=== PATIENT | female | born 1990 | race Caucasian/White ===

== ENCOUNTER 2022-07-30 10:46 | Outpatient (REF) | payer OTHER, SELFPAY ==
[2022-07-31 05:17] LABS: CT PCR NOT DETECTED (Not Detect.); NG PCR NOT DETECTED (Not Detect.)
[2022-07-31 15:52] LABS: BV Int Neg Control Negative (Negative); BV Int Pos Control Positive (Positive)
== END 2022-07-30 10:47 | disposition home or self-care (01) ==
LOC: HO.LNP 10:46
PROVIDERS: Visit Provider Advanced Practice Midwife
DX: Z01.419 Encounter for gynecological examination (general) (routine) without abnormal findings (principal); Z11.3 Encounter for screening for infections with a predominantly sexual mode of transmission
CPT/HCPCS: 87480; 87491; 87510; 87591; 87660

== ENCOUNTER 2023-02-21 11:10 | Outpatient (REF) | payer OTHER, SELFPAY ==
[2023-02-21 11:25] LABS: MANUAL DIFF FLAG NO
[2023-02-21 12:11] LABS: Basophils Percent Auto 0.4 % (0-2); Eosinophils Absolute Auto 0.2 X10*3/uL (0.0-0.4); Eosinophils Percent Auto 2.7 % (0-4); Hematocrit 42.4 % (37.0-47.0); Hemoglobin 13.4 g/dl (12.0-16.0); Imm Gran Abs Auto 0.02 X10*3/uL (0.00-0.03); Imm Gran Pct Auto 0.3 % (0.0-0.4); Lymphocytes Absolute Auto 2.3 X10*3/uL (1.2-4.9); Lymphocytes Percent Auto 33.6 % (20-40); Mean Corpuscular HGB Conc 31.6 g/dl (31.0-35.0); Mean Corpuscular Hemoglobin 29.8 pg (27.0-33.0); Mean Corpuscular Volume 94.4 fL (80.0-98.0); Mean Platelet Volume 10.9 fL (9.4-12.3); Monocytes Absolute Auto 0.8 X10*3/uL (0.1-1.2); Monocytes Percent Auto 12.4 % (2-11); Neutrophils Absolute Auto 3.4 x10*3/uL (2.0-8.3); Neutrophils Percent Auto 50.6 % (45-73); Platelet Count 308 X10*3/uL (160-400); Red Blood Count 4.49 X10*6/uL (4.20-5.50); Red Cell Distribution Width 13.5 % (11.0-16.0); White Blood Count 6.8 X10*3/uL (4.8-10.8)
[2023-02-21 12:21] LABS: Appearance Urine Clear; Color Urine Yellow; Glucose Urine UA Negative (Negative); Leukocyte Esterase Urine Small (1+) (Negative); Nitrite Urine Negative (Negative); PH 5.5 (5.0-9.0); Specific Gravity - Urine 1.025 (1.005-1.025); UMIC TRIGGER UACC YES; Urine Blood Negative (Negative); Urine Ketones Trace mg/dL (Negative); Urine Protein Negative (Neg-Trace)
[2023-02-21 12:27] LABS: Bacteria Urine Trace (None Seen); Hyaline Casts Urine 0-2 /LPF (0-2); RBC Urine 0-2 /HPF (0-2); UACC Culture Trigger YES
[2023-02-21 12:50] LABS: Alanine Aminotransferase 10 U/L (0-31); Albumin Level 4.2 g/dL (3.5-5.0); Alkaline Phosphatase 60 U/L (39-117); Anion Gap 15 (12-20); Aspartate Amino Transferase 16 U/L (5-31); Bilirubin Total 0.4 mg/dL (0.0-1.0); Blood Urea Nitrogen 15 mg/dL (9-16); Calcium 9.4 mg/dL (8.4-10.2); Carbon Dioxide 24 mmol/L (22-29); Chloride 106 mmol/L (96-108); Cholesterol 217 mg/dL; Estimated Glomerular Filt Rate > 60; Glucose Fasting 80 mg/dL (60-99); HDL Cholesterol 49 mg/dL; LDL Cholesterol Calculated 159 mg/dl; Potassium 4.7 mmol/L (3.3-5.1); Sodium 140 mmol/L (135-145); Total Protein 7.1 g/dL (6.5-8.0); Triglycerides 47 mg/dL
[2023-02-21 12:58] LABS: Syphilis Screen Nonreactive (Nonreactive)
[2023-02-21 13:05] LABS: TSH reflex Free T4 1.11 uIU/mL (0.32-4.0); Vitamin D 25-OH Total 30.7 ng/mL (>30)
[2023-02-21 14:09] LABS: HBsAGNum1 0.32 S/CO (0.00-0.99); HIV AB/AG Nonreactive (Nonreactive); HIV Num 1 0.08 S/CO (0.00-0.99); Hepatitis B Surface Antigen Negative (Negative); ~HepC Num1 0.11 S/CO (0.00-0.79); ~Hepatitis C Antibody Nonreactive (Nonreactive)
== END 2023-02-21 11:11 | disposition home or self-care (01) ==
LOC: HO.LAB 11:10
PROVIDERS: Advanced Practice Midwife; PCP Internal Medicine; Visit Provider Internal Medicine
DX: Z00.00 Encounter for general adult medical examination without abnormal findings (principal); E78.00 Pure hypercholesterolemia, unspecified; E55.9 Vitamin D deficiency, unspecified; R30.0 Dysuria; Z11.3 Encounter for screening for infections with a predominantly sexual mode of transmission
CPT/HCPCS: 36415; 80053; 80061; 81001; 81003; 82306; 84443; 85025; 86780; 86803; 87086; 87340; 87389

== ENCOUNTER 2023-04-28 08:54 | Outpatient (REF) | payer OTHER, SELFPAY ==
[2023-04-29 14:13] LABS: BV Int Neg Control Negative (Negative); BV Int Pos Control Positive (Positive)
== END 2023-04-28 08:55 | disposition home or self-care (01) ==
LOC: HO.LNP 08:54
PROVIDERS: PCP Internal Medicine; Visit Provider Obstetrics & Gynecology
DX: N76.0 Acute vaginitis (principal); B96.89 Other specified bacterial agents as the cause of diseases classified elsewhere
CPT/HCPCS: 87480; 87510; 87660; 99212

== ENCOUNTER 2023-04-28 09:45 | Outpatient (REF) | payer OTHER, SELFPAY ==
[2023-04-28 11:55] LABS: HBsAGNum1 0.36 S/CO (0.00-0.99); HIV AB/AG Nonreactive (Nonreactive); HIV Num 1 0.06 S/CO (0.00-0.99); Hepatitis B Surface Antigen Negative (Negative); Syphilis Screen Nonreactive (Nonreactive); ~HepC Num1 0.08 S/CO (0.00-0.79); ~Hepatitis C Antibody Nonreactive (Nonreactive)
[2023-04-28 14:45] LABS: CT PCR NOT DETECTED (Not Detect.); NG PCR NOT DETECTED (Not Detect.)
== END 2023-04-28 09:46 | disposition home or self-care (01) ==
LOC: HO.LAB 09:45
PROVIDERS: PCP Internal Medicine; Visit Provider Obstetrics & Gynecology
DX: N76.0 Acute vaginitis (principal); B96.89 Other specified bacterial agents as the cause of diseases classified elsewhere; N94.9 Unspecified condition associated with female genital organs and menstrual cycle
CPT/HCPCS: 0353U; 86780; 86803; 87340; 87389

== ENCOUNTER 2023-05-27 10:52 | Outpatient (AMB) | payer OTHER, SELFPAY ==
[2023-05-27 10:55] VITALS: BP 118/70; BMI 26.8
--- NOTE | 2023-05-27 10:55 | A.OFFVIS_ITS ---
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 [facility] Medical History Allergy to animal dander Environmental and seasonal allergies Overweight (BMI 25.0-29.9) Surgical History No pertinent past surgical history Family History Mother No problems noted. Father No problems noted. Social History Housing: Apartment Alcohol intake: former Patient Tobacco Use Status: Never used Tobacco e-Cigarette/Vaping Use: Never Used Second Hand Smoke Exposure: No service: No Current occupational status: employed Cognitive needs: No Hearing needs: No Vision needs: No Female Reproductive History Menstrual Age of Menarche: 12 Date of last menstrual period: 05/26/23 Review of Systems Const All systems reviewed & are unremarkable except as noted in HPI and below Reports as per HPI and Reports no additional complaints GI Reports no additional complaints Reports no additional complaints Physical Exam Vital Signs: Last Vital Signs BP 118/70 05/27/23 10:55 BMI result Body Mass Index 26.8 Assessment & Plan Assessment & Plan (1) Family planning advice: Code(s): Z30.09 - Encounter for other general counseling and advice on contraception Plan: Discussed with the patient the different options of control including control pills/Nuvaring, Depo Medroxy Progesterone Acetate, IUD ( levonorgestrel, Copper), sterilization. All the pros, cons, risks and benefits of each were discussed with the patient. The patient decided to go ahead with [facility] so a more detailed discussion re: control pills including mechanism of action, benefits (regular menses, less dysmenorrhea, less risk of ovarian cancer, ...), risks ( DVT, PE, Strokes, PR, increased breast ca, others). Instructions were given to use a back- up method for contraception x 1st 2 weeks, and to schedule a 3 months appointment for blood pressure check Orders: Orders US pelvic and transvaginal Today N94.9 - Unspecified condition associated with female genital organs and menstrual cycle Medications: New desogestrel-ethinyl estradiol 0.15-0.03 mg (Apri) 1 tab PO DAILY 28 tabs 2RF 28 days Coding Level of Care Code Est Pt Level 3 (34329) Diagnoses Family planning advice Z30.09
== END 2023-05-27 11:22 | disposition home or self-care (01) ==
LOC: HO.HWS 10:52
PROVIDERS: PCP Internal Medicine; Visit Provider Obstetrics & Gynecology
DX: Z30.09 Encounter for other general counseling and advice on contraception (principal)
CPT/HCPCS: 99213

== ENCOUNTER → 2023-05-27 10:52 | Outpatient (BNVA) | payer OTHER, SELFPAY | PROVIDERS: PCP Internal Medicine; Visit Provider Obstetrics & Gynecology | DX: Z30.09 Encounter for other general counseling and advice on contraception (principal) | CPT/HCPCS: 99212 ==

== ENCOUNTER 2023-06-11 10:41 | Outpatient (REF) | payer OTHER, SELFPAY ==
--- NOTE | ~2023-06-11 | US_ITS ---
EXAMINATION: US PELVIS COMPLETE CLINICAL INFORMATION: Adnexal fullness COMPARISON: OB ultrasound 11/24/2019 TECHNIQUE: Transabdominal and transvaginal imaging was performed. FINDINGS: The uterus is of normal size and echogenicity measuring 9.2 x 4.1 x 5.4 cm. A heterogeneous and thickened endometrium is identified measuring 1.9 cm. Questionable possible feeder vessel however without discrete polyp identified. Both ovaries are of normal size and echogenicity. The right measures 1.4 x 2.0 x 1.2 cm for a volume of 1.8 mL. The left measures 2.5 x 1.9 x 1.9 cm for a volume of 4.7 mL. Prominent left adnexal vessels recommend correlation with any symptoms of pelvic venous congestion syndrome. There is no pelvic free fluid. US/US pelvic and transvaginal IMPRESSION: 1. Prominent left adnexal vessels recommend correlation with any symptoms of pelvic venous congestion syndrome. 2. A heterogeneous and thickened endometrium is identified measuring 1.9 cm. Questionable possible feeder vessel however without discrete polyp identified, it any clinical concern consider correlation with saline sonohysterogram.
== END 2023-06-11 10:42 | disposition home or self-care (01) ==
LOC: HO.US 10:41
PROVIDERS: PCP Internal Medicine; Visit Provider Obstetrics & Gynecology
DX: N94.9 Unspecified condition associated with female genital organs and menstrual cycle (principal)
CPT/HCPCS: 76830; 76856

== ENCOUNTER 2023-07-07 12:26 | Outpatient (AMB) | payer OTHER, SELFPAY ==
[2023-07-07 12:29] VITALS: BP 120/62; BMI 27.1
--- NOTE | 2023-07-07 12:29 | MHC.OFFVIS ---
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 The patient is not complaining of any pelvic pain or abnormal uterine bleeding. Pelvic ultrasound done recently showed the following: The uterus is of normal size and echogenicity measuring 9.2 x 4.1 x 5.4 cm. A heterogeneous and thickened endometrium is identified measuring 1.9 cm. Questionable possible feeder vessel however without discrete polyp identified.? Both ovaries are of normal size and echogenicity. The right measures 1.4 x 2.0 x 1.2 cm for a volume of 1.8 mL. The left measures 2.5 x 1.9 x 1.9 cm for a volume of 4.7 mL. Prominent left adnexal vessels recommend correlation with any symptoms of pelvic venous congestion syndrome. There is no pelvic free fluid. [facility] Medical History Allergy to animal dander Environmental and seasonal allergies Overweight (BMI 25.0-29.9) Surgical History No pertinent past surgical history Family History Mother No problems noted. Father No problems noted. Social History Housing: Apartment Alcohol intake: former Patient Tobacco Use Status: Never used Tobacco e-Cigarette/Vaping Use: Never Used Second Hand Smoke Exposure: No service: No Current occupational status: employed Cognitive needs: No Hearing needs: No Vision needs: No Female Reproductive History Menstrual Age of Menarche: 12 Date of last menstrual period: 06/27/23 control method: pills Date of last pap smear: 05/11/20 (negative) Review of Systems Const All systems reviewed & are unremarkable except as noted in HPI and below Reports as per HPI and Reports no additional complaints GI Reports no additional complaints Reports no additional complaints Physical Exam Vital Signs: Last Vital Signs BP 120/62 07/07/23 12:29 BMI result Body Mass Index 27.1 Assessment & Plan Assessment & Plan (1) Abnormal ultrasound of endometrium: Comment: With left prominent adnexa vessels Code(s): R93.5 - Abnormal findings on diagnostic imaging of other abdominal regions, including retroperitoneum Plan: Discussed with the patient the finding on ultrasound showing heterogenous thickened endometrium with possible feeder vessel without a discrete finding of endometrial polyp, recommended either repeat sono hysteroscopy in 6 weeks versus hysteroscopy D&C possible polypectomy/myomectomy. All pros and cons, risks and benefits of each were discussed with the patient, the patient decided to proceed with repeat sono hysteroscopy in 6 weeks. Will schedule it around day 8 of the patient's next menstrual cycle. In addition, discussed the patient the evidence of prominent left adnexal vessels, possibility of pelvic congestion syndrome . Since the patient does not have pelvic pain no need for further management. Instructions given the patient to call in case pelvic pain occurs in the future. All questions answered, the patient verbalized understanding Orders: Orders US sonohysterography 6 Weeks R93.5 - Abnormal findings on diagnostic imaging of other abdominal regions, including retroperitoneum Coding Level of Care Code Est Pt Level 3 (02068) Diagnoses Abnormal ultrasound of endometrium R93.5
== END 2023-07-07 13:54 | disposition home or self-care (01) ==
LOC: HO.HWS 12:26
PROVIDERS: PCP Internal Medicine; Visit Provider Obstetrics & Gynecology
DX: R93.5 Abnormal findings on diagnostic imaging of other abdominal regions, including retroperitoneum (principal)
CPT/HCPCS: 99213

== ENCOUNTER → 2023-07-07 12:26 | Outpatient (BNVA) | payer OTHER, SELFPAY | PROVIDERS: PCP Internal Medicine; Visit Provider Obstetrics & Gynecology | DX: R93.5 Abnormal findings on diagnostic imaging of other abdominal regions, including retroperitoneum (principal) | CPT/HCPCS: 99212 ==

== ENCOUNTER 2023-12-18 11:44 | Outpatient (REF) | payer OTHER, SELFPAY ==
--- NOTE | ~2023-12-18 | US_ITS ---
EXAMINATION: US PELVIS CLINICAL INFORMATION: Abnormal uterine bleeding. LMP 12/16/2023. COMPARISON: 06/11/2023 TECHNIQUE: Ultrasound of the pelvis is performed using both transabdominal and transvaginal transducers along with Doppler. Transvaginal imaging is performed due to inadequate visualization transabdominally. FINDINGS: Uterus: The uterus is anteverted. Uterine echotexture is heterogeneous. The uterus measures 8.9 x 4.3 x 5.0 cm. The endometrial stripe is thickened and heterogeneous measuring up to 1.4 cm. Cystic and solid components. Trace fluid in the endometrial cavity. There is markedly increased vascular flow. Adnexa: There is no pelvic ascites or fluid collection. Right ovary measures 1.8 x 1.9 x 1.7 cm. Left ovary measures 2.2 x 2.2 x 1.2 cm. US/US pelvic and transvaginal IMPRESSION: Thickened heterogeneous endometrium with hypervascularity. Consultation with gynecology is advised. Endometrial sampling should be considered. Diagnostic considerations include endometrial hyperplasia versus endometrial polyp.
== END 2023-12-18 11:45 | disposition home or self-care (01) ==
LOC: HO.US 11:44
PROVIDERS: PCP Internal Medicine; Visit Provider Nurse Practitioner Family
DX: N93.9 Abnormal uterine and vaginal bleeding, unspecified (principal)
CPT/HCPCS: 76830; 76856

== ENCOUNTER 2024-01-01 10:05 | Outpatient (AMB) | payer OTHER, SELFPAY ==
[2024-01-01 10:30] VITALS: BP 116/76; BMI 27.4
--- NOTE | 2024-01-01 10:30 | MHC.OFFVIS ---
Intake Vital Signs 01/01/24 10:30 Height 5 ft 8 in Weight 180 lb BMI 27.4 BP 116/76 Intake Visit Reasons: follow up Certified Coatings Inspector Required: No Director Of Manufacturing Operations: Director Of Manufacturing Operations Present Allergies No Known Allergies Allergy (Verified 01/01/24 10:32) Is last menstrual period known: Yes Last menstrual period: 12/17/23 Post menopausal: No Patient : No Do you need a note to return to daycare/school/sports/work: Yes (for surgery on friday) HPI HPI Comments History of Present Illness Details The patient is presenting for follow-up ultrasound which was done on 12/18/2023 , on day 5 or the patient's menstrual cycle, and showed the following: Uterus: The uterus is anteverted. Uterine echotexture is heterogeneous. The uterus measures 8.9 x 4.3 x 5.0 cm. The endometrial stripe is thickened and heterogeneous measuring up to 1.4 cm. Cystic and solid components. Trace fluid in the endometrial cavity. There is markedly increased vascular flow. Adnexa: There is no pelvic ascites or fluid collection. Right ovary measures 1.8 x 1.9 x 1.7 cm. Left ovary measures 2.2 x 2.2 x 1.2 cm. Previous ultrasound done in 06/08 showed the following: The uterus is of normal size and echogenicity measuring 9.2 x 4.1 x 5.4 cm. A heterogeneous and thickened endometrium is identified measuring 1.9 cm. Questionable possible feeder vessel however without discrete polyp identified. Both ovaries are of normal size and echogenicity. The right measures 1.4 x 2.0 x 1.2 cm for a volume of 1.8 mL. The left measures 2.5 x 1.9 x 1.9 cm for a volume of 4.7 mL. Prominent left adnexal vessels recommend correlation with any symptoms of pelvic venous congestion syndrome. There is no pelvic free fluid. After this ultrasound the plan was to schedule a sono hystero, but the patient became and had a termination and since then had abnormal uterine bleeding and was started on control pills and her bleeding since then has resolved completely [facility] Medical History Allergy to animal dander Environmental and seasonal allergies Overweight (BMI 25.0-29.9) Surgical History No pertinent past surgical history Family History Mother No problems noted. Father No problems noted. Social History Housing: Apartment Alcohol intake: former Patient Tobacco Use Status: Never used Tobacco e-Cigarette/Vaping Use: Never Used Second Hand Smoke Exposure: No service: No Current occupational status: employed Cognitive needs: No Hearing needs: No Vision needs: No Female Reproductive History Menstrual Age of Menarche: 12 Date of last menstrual period: 12/17/23 control method: pills Total pregnancies: 2 Full term: 2 Review of Systems Card Reports as per HPI and Reports no additional complaints Resp Reports as per HPI and Reports no additional complaints GI Reports as per HPI and Reports no additional complaints Reports as per HPI Physical Exam Vital Signs: Last Vital Signs BP 116/76 01/01/24 10:30 BMI result Body Mass Index 27.4 Const General: cooperative, healthy appearing and comfortable Resp Effort & Inspection: normal respiratory effort Auscultation: clear to auscultation bilaterally Percussion: percussion normal Cardio Palpation: normal PMI Rate: regular rate Rhythm: regular rhythm Heart sounds: no murmurs and no rubs Peripheral pulses: Peripheral pulses 2+ throughout GI Inspection: Yes normal to inspection Palpation (GI): Soft to palpation, nontender, no guarding, not rigid and No hepatosplenomegaly present Percussion: Yes normal to percussion Auscultation: normal bowel sounds Rectal Exam - Female: deferred Assessment & Plan Assessment & Plan (1) Abnormal ultrasound of endometrium: Code(s): R93.5 - Abnormal findings on diagnostic imaging of other abdominal regions, including retroperitoneum Plan: Discussed with the patient the finding on ultrasound, thickened and hypervascular endometrium, differential diagnosis discussed with the patient include but not limited to endometrial hyperplasia and/or malignancy or polyp. Recommended hysteroscopy D&C possible polypectomy/myomectomy. Discussed with the patient the procedure , all benefits and risks including but not limited to inability to complete the procedure , insufficient endometrial tissue for a complete evaluation of the endometrial cavity , bleeding, infection, possible need for blood transfusion with all its risk ( HIV,syphilis, Hepatitis, anaphylaxis shock, others..), injury to bladder, rectum, possible need for laparoscopy/laparotomy or hysterectomy. The patient verbalized understanding and signed the consent. Instructions given the patient to schedule a 2 week postoperative appointment Coding Level of Care Code Est Pt Level 3 (97424) Diagnoses Abnormal ultrasound of endometrium R93.5
== END 2024-01-01 11:01 | disposition home or self-care (01) ==
LOC: HO.HWS 10:05
PROVIDERS: PCP Internal Medicine; Visit Provider Obstetrics & Gynecology
DX: R93.5 Abnormal findings on diagnostic imaging of other abdominal regions, including retroperitoneum (principal)
CPT/HCPCS: 99213

== ENCOUNTER → 2024-01-01 10:05 | Outpatient (BNVA) | payer OTHER, SELFPAY | PROVIDERS: PCP Internal Medicine; Visit Provider Obstetrics & Gynecology | DX: R93.5 Abnormal findings on diagnostic imaging of other abdominal regions, including retroperitoneum (principal) | CPT/HCPCS: 99212 ==

== ENCOUNTER 2024-01-16 09:06 | Day surgery (SDC) | payer OTHER, SELFPAY ==
[2024-01-14 08:57] VITALS: BMI 27.4
--- NOTE | 2024-01-14 15:00 | HO.ANESPROP2 ---
Documented by User: Yenifer Asencio NP 01/14/24 15:01 HPI - Anesthesia Eval Consult details Narrative: 33yo F for D&C Hysteroscopy,possible myomectomy,possible polypectomy, PMFSH Active Problems Active Problems: All Active Problems (Updated 01/01/24 @ 10:48 by Vineet Chacon MD) Abnormal ultrasound of endometrium (Acute) Family planning advice (Acute) Adnexal fullness (Acute) Bacterial vaginosis (Acute) Allergy to animal dander (Acute) Environmental and seasonal allergies (Acute) Lactating mother (Acute) Uses condoms as primary control method (Acute) Uses fertility awareness method as primary control method (Acute) Screen for sexually transmitted diseases (Acute) Cervical cancer screening (Acute) Well woman exam with routine gynecological exam (Acute) Overweight (BMI 25.0-29.9) (Acute) Allergic reaction (Acute) Annual physical exam (Acute) Past Medical History Medical History Allergy to animal dander Environmental and seasonal allergies Overweight (BMI 25.0-29.9) Family History Family History Mother No problems noted. Father No problems noted. Surgical History Surgical History No pertinent past surgical history Social History Social History Housing: Apartment Alcohol intake: former Patient Tobacco Use Status: Never used Tobacco e-Cigarette/Vaping Use: Never Used Second Hand Smoke Exposure: No service: No Current occupational status: employed Cognitive needs: No Hearing needs: No Vision needs: No Meds Allergies Allergy/AdvReac Type Severity Reaction Status Date / Time No Known Allergies Allergy Verified 01/01/24 10:32 Home Medications Medication Instructions Recorded Confirmed Last Taken Type norethindrone 1.5 mg-ethinyl tab PO 01/01/24 Unknown History estradiol 30 mcg(21)/iron 75 mg(7) tablet ( FE 1.530 (28)) Exam Height,Weight and Vital Signs: Height 5 ft 8 in Weight 81.647 kg Assessment and Plan Assessment Anesthesia Assessment: Chart Reviewed Documented by User: Nilda Hawkins MD 01/16/24 12:41 PMFSH Active Problems Active Problems: All Active Problems (Updated 01/16/24 @ 11:28 by Nilda Hawkins MD) Abnormal ultrasound of endometrium (Acute) Adnexal fullness (Acute) Bacterial vaginosis (Acute) Allergy to animal dander (Acute) Environmental and seasonal allergies (Acute) Screen for sexually transmitted diseases (Acute) Cervical cancer screening (Acute) Well woman exam with routine gynecological exam (Acute) Overweight (BMI 25.0-29.9) (Acute) Past Medical History Medical History Allergy to animal dander Environmental and seasonal allergies Overweight (BMI 25.0-29.9) Family History Family History Mother No problems noted. Father No problems noted. Family history of problems with anesthesia: No Surgical History Surgical History No pertinent past surgical history History of Problems with Anesthesia: No Social History Social History Housing: Apartment Alcohol intake: former Patient Tobacco Use Status: Never used Tobacco e-Cigarette/Vaping Use: Never Used Second Hand Smoke Exposure: No service: No Current occupational status: employed Cognitive needs: No Hearing needs: No Vision needs: No Meds Allergies Allergy/AdvReac Type Severity Reaction Status Date / Time No Known Allergies Allergy Verified 01/01/24 10:32 Home Medications Medication Instructions Recorded Confirmed Last Taken Type norethindrone 1.5 mg-ethinyl tab PO 01/01/24 Unknown History estradiol 30 mcg(21)/iron 75 mg(7) tablet (Junel FE 1.5/30 (28)) Exam Height,Weight and Vital Signs: Height 5 ft 8 in Weight 81.647 kg Vital Signs Temp Pulse Resp BP Pulse Ox O2 Del Method 97.8 F 60 16 102/65 97 Room Air 01/16/24 10:17 01/16/24 10:17 01/16/24 10:17 01/16/24 10:17 01/16/24 10:17 01/16/24 10:17 Pertinent Lab Results Pertinent Lab Results: Lab Results 01/16/24 Range/Units 10:04 Urine Test NEGATIVE (NEGATIVE) Airway Mallampati Class: II TM Dist: >3cm Neck ROM: Full Loose/Missing/Broken Teeth: No (Denies broken or loose teeth) Heart: RRR Lungs: CTAB Assessment and Plan Assessment Anesthesia Assessment: Anesthesia Plan Discussed and Chart Reviewed Final Anesthetic Review Family History of Problems with Anesthesia: No History of Problems with Anesthesia: No NPO: Yes ASA Class: II Final Preanesthetic Review: No Changes in Pt Med Stat, Meds/Allgs Chart Reviewed, Consent Obtained/Reviewed and Anes Risks/Benef Reviewed Patient Risk: Low Procedure Risk: Low Assessment/Block/Sedation in SS: Assess/Block/Sedation-SS Anesthetic Plan Anesthetic Plan: GA Disposition: Standard PACU
[2024-01-16 10:08] VITALS: BMI 27.7
[2024-01-16 10:17] VITALS: BP 102/65; PULSE 60; RESP 16; TEMP 36.6; O2SAT 97
[2024-01-16 10:26] LABS: UPreg QC Valid YES; Urine Pregnancy NEGATIVE (NEGATIVE)
[2024-01-16] MEDS: Lactated Ringers 1,000 ML 100 ML IVCONT (10:36)
--- NOTE | 2024-01-16 11:06 | MHC.SHP ---
Pre-Procedural Eval Section A - 24 Hr Update-Section A only Date of Service: 01/16/24 The patient is an INPATIENT: No Changes since office visit: No Cold of Flu in the past 2 weeks, No New Medical Problems, No Changes in Medication and No Patient answered all questions The patient has been examined within 24 hours of the surgical procedure. The History & Physical has been completed within 30 days and I have reviewed it.: Yes Section B - Complete if H&P > 30 days Chief Complaint: Abnormal findings on diagnostic imaging of other Allergies: Allergies Allergy/AdvReac Type Severity Reaction Status Date / Time No Known Allergies Allergy Verified 01/01/24 10:32 Plan Diagnosis/Plan: Unchanged I have reviewed the history and physical and performed a pertinent physical examination on my patient. No changes have occurred unless specified. Time Spent With Patient Time: Total time managing care of this patient today ____ minutes.
--- NOTE | 2024-01-16 12:03 | P.BOP_ITS ---
Brief Operative Note Date of Service: 01/16/24 Pre-op diagnosis: Abnormal endometrium by ultrasound Post-op diagnosis: same (Endometrial polyp) Procedure: Hysteroscopy D&C, Polypectomy Surgeon: Vineet Chacon MD Anesthesia: GLMA Was an Professor Of Family Medicine used for this Procedure?: No Estimated blood loss (mL): 0 Pathology: other (Endometrial Scrapping. Polyp) Condition: stable Disposition: PACU
--- NOTE | 2024-01-16 12:03 | W.PM.OPN ---
Operative Note Operative Note Date of Service: 01/16/24 Narrative: Preop Diagnosis: Abnormal endometrium by US Operation: Diagnostic Hysteroscopy, Dilataion & Curettage and polypectomy Post Op Diagnosis: Endometrial Polyp QBL: Minimal Anesthesia: GLMA Surgeon: Vineet Chacon MD Drilling Fluids Specialist: None Complication: None Pathology: Endometrial Scrapings, Endometrial polyp Procedure: The patient was put in the dorsal lithotomy position, scrubbed, and draped in the usual manner. A sterile speculum was inserted in the patient's vagina. The anterior lip of the cervix was grasped with a single tooth tenaculum. The cervix was dilated up to 5 mm, then the scope was inserted in the patient's uterus. Inspection revealed endometrial polyp. The Myosure Reach device was used; it was introduced through the operative channel and polypectomy done with no complications. The scope was then taken out from the uterine cavity, sharp curettings was carried on with minimal to moderate amount of tissues retrieved. At the end of the procedure, all instruments were taken out of the patient uterine and vaginal cavity. The single tooth tenaculum was removed and homeostasis was assured using pressure,. The patient tolerated the procedure well and was transferred to the PACU in a stable condition.
[2024-01-16 12:10] VITALS: BP 92/54; PULSE 70; RESP 16; TEMP 36.3; O2SAT 98
[2024-01-16 12:15] VITALS: BP 103/67; PULSE 65; RESP 18; O2SAT 99
[2024-01-16 12:20] VITALS: BP 99/67; PULSE 50; RESP 18; O2SAT 99
[2024-01-16 12:25] VITALS: BP 92/57; PULSE 53; RESP 18; TEMP 36.8; O2SAT 100
[2024-01-16 12:41] VITALS: BP 97/59; PULSE 61; RESP 20; TEMP 36.1; O2SAT 100
== END 2024-01-16 13:20 | disposition home or self-care (01) ==
PROVIDERS: PCP Internal Medicine; Visit Provider Obstetrics & Gynecology
PROC: 0UDB8ZZ Extraction of Endometrium, Via Natural or Artificial Opening Endoscopic (ICD-10-PCS; CPT 58558; principal; 2024-01-16 10:30)
DX: R93.5 Abnormal findings on diagnostic imaging of other abdominal regions, including retroperitoneum (principal); N84.0 Polyp of corpus uteri; J30.2 Other seasonal allergic rhinitis; E66.3 Overweight; Z68.27 Body mass index [BMI] 27.0-27.9, adult; Z79.899 Other long term (current) drug therapy
CPT/HCPCS: 58558; 81025; 88305; 88342; J1885; J2405; J2704; J3010

== ENCOUNTER → 2024-01-16 09:06 | Outpatient (BNV) | payer OTHER, SELFPAY | PROVIDERS: PCP Internal Medicine; Visit Provider Obstetrics & Gynecology | DX: R93.5 Abnormal findings on diagnostic imaging of other abdominal regions, including retroperitoneum (principal); N84.0 Polyp of corpus uteri | CPT/HCPCS: 58558 ==

== ENCOUNTER 2024-01-27 09:36 | Outpatient (AMB) | payer OTHER, SELFPAY ==
--- NOTE | 2024-01-27 09:46 | MHC.OFFVIS ---
Intake Vital Signs 01/27/24 09:50 Height 5 ft 8 in Weight 178 lb BMI 27.1 BP 120/74 Intake Visit Reasons: post op Allergies No Known Allergies Allergy (Verified 01/01/24 10:32) HPI HPI Comments History of Present Illness Details The patient is presenting post hysteroscopy D&C no complaints , no vaginal bleeding, no feverishness chills or abdominal pain. The pathology is still pending, received a call from Dr. Voss, pathology department, stating that the differential diagnosis of the polyp includes retained placenta, exaggerated placenta site, placenta site nodule, other for blastic lesions and stains were sent out waiting for the results The patient gives history [facility] she kept on having continuous vaginal bleeding , pelvic ultrasound was done and according to the patient showed abnormal endometrium possible polyp, the patient was started on control pills and her bleeding stopped, the patient presented for follow-up regarding abnormal finding on ultrasound, repeat ultrasound showed abnormal endometrium. [facility] Medical History Allergy to animal dander Environmental and seasonal allergies Overweight (BMI 25.0-29.9) Surgical History No pertinent past surgical history Family History Mother No problems noted. Father No problems noted. Social History Housing: Apartment Alcohol intake: former Patient Tobacco Use Status: Never used Tobacco e-Cigarette/Vaping Use: Never Used Second Hand Smoke Exposure: No service: No Current occupational status: employed Cognitive needs: No Hearing needs: No Vision needs: No Female Reproductive History Menstrual Age of Menarche: 12 Date of last menstrual period: 01/14/24 Review of Systems Const All systems reviewed & are unremarkable except as noted in HPI and below Reports as per HPI and Reports no additional complaints GI Reports no additional complaints Reports no additional complaints Physical Exam Vital Signs: Last Vital Signs BP 120/74 01/27/24 09:50 BMI result Body Mass Index 27.1 Assessment & Plan Assessment & Plan (1) Abnormal ultrasound of endometrium: Comment: History of medical with possible retained products of conception in 08/09 Code(s): R93.5 - Abnormal findings on diagnostic imaging of other abdominal regions, including retroperitoneum Plan: Discussed with the patient the intraoperative findings, endometrial polyp excised, the differential diagnosis discussed with the pathology and the pathology report is still pending, will order hCG quantitative to rule out GTD, will follow-up with the patient after the pathology reported out to discuss further. All questions answered, the patient verbalized understanding. Orders: Orders HCG Quantitative Today R93.5 - Abnormal findings on diagnostic imaging of other abdominal regions, including retroperitoneum Coding Level of Care Code Est Pt Level 3 (73993) Diagnoses Abnormal ultrasound of endometrium R93.5
[2024-01-27 09:50] VITALS: BP 120/74; BMI 27.1
== END 2024-01-27 10:02 | disposition home or self-care (01) ==
LOC: HO.HWS 09:36
PROVIDERS: PCP Internal Medicine; Visit Provider Obstetrics & Gynecology
DX: R93.5 Abnormal findings on diagnostic imaging of other abdominal regions, including retroperitoneum (principal)
CPT/HCPCS: 99213

== ENCOUNTER 2024-01-27 09:36 | Outpatient (REF) | payer OTHER, SELFPAY ==
[2024-01-27 12:09] LABS: HCG Quantitative < 2 mIU/mL
== END 2024-01-27 09:37 | disposition home or self-care (01) ==
LOC: HO.LAB 09:36
PROVIDERS: PCP Internal Medicine; Visit Provider Obstetrics & Gynecology
DX: Z09 Encounter for follow-up examination after completed treatment for conditions other than malignant neoplasm (principal); R93.5 Abnormal findings on diagnostic imaging of other abdominal regions, including retroperitoneum
CPT/HCPCS: 36415; 84702; 99212

== ENCOUNTER → 2024-01-28 14:49 | Outpatient (BNVA) | payer OTHER, SELFPAY | PROVIDERS: PCP Internal Medicine; Visit Provider Obstetrics & Gynecology ==

== ENCOUNTER 2024-02-23 09:46 | Outpatient (AMB) | payer OTHER, SELFPAY ==
[2024-02-23 09:57] VITALS: BP 100/66; PULSE 92; O2SAT 97; BMI 26.8
--- NOTE | 2024-02-23 09:57 | A.OFFPC_ITS ---
Vital Signs 02/23/24 09:57 Height 5 ft 8 in Weight 176 lb BMI 26.8 BP 100/66 Blood Pressure Location Lt brachial Position Sitting Pulse 92 Pulse Source Pulse Oximeter Pulse Oximetry (%) 97 Oxygen Delivery Method Room Air Intake Visit Reasons: pe Intake Note: Patient is here today for a physical. Instructor Extension Work Required: No Accompanied by: Self / Same As Patient Is last menstrual period known: Yes Last menstrual period: 02/11/24 Allergies No Known Allergies Allergy (Verified 02/23/24 10:46) Medication List - Last Reconciled 02/23/24 by Brennan Parker MD cetirizine 10 mg PO DAILY PRN 90 days epinephrine (EpiPen 2-Dario) 0.3 mg (0.3 mL) IM Q10M PRN norethindrone-e.estradiol-iron 1.5 mg-30 mcg (21)/75 mg (7) (.04/15 ()) tabs PO Tobacco use date assessed: 02/23/24 Dental Screening Dental Screen Date: 02/23/24 Did you have a dental visit in the last 12 months?: Yes Did you have a dental problem in the last 6 months where you did not have access to dental care?: No Was dental information given to patient?: Patient has dentist HPI pe HPI Details Patient comes in today for her annual physical examination States that she currently feels okay except for recurrent nasal drainage and allergy symptoms lately States that she often has increased allergy symptoms in the spring and she started back on her Cetirizine 10 mg QD recently Relates that she had a medical done back in 07/2023 with [facility] after which she kept on having continuous vaginal bleeding She was following up with Dr. Chacon for her vaginal bleeding issues and ultimately underwent hysteroscopy, D & C and endometrial Bx last month, with pathology showing retained placenta States that her vaginal bleeding has since stopped although she still notices some vaginal discharge at times She denies any headaches or dizziness; denies any fever or sore throat Denies any chest pains, no SOB No nausea/vomiting, no abdominal pain No change in bowel habits noted Denies any acute urinary symptoms Needs her Epipen Rx refilled [facility] Medical History (Updated 02/23/24 @ 11:04 by Brennan Parker MD) Pure hypercholesterolemia Allergy to animal dander Environmental and seasonal allergies Overweight (BMI 25.0-29.9) Surgical History (Updated 02/23/24 @ 10:58 by Brennan Parker MD) History of hysteroscopy (~01/16/24) Hx of dilation and curettage Family History Mother No problems noted. Father No problems noted. Social History Housing: Apartment Alcohol intake: former Patient Tobacco Use Status: Never used Tobacco e-Cigarette/Vaping Use: Never Used Second Hand Smoke Exposure: No service: No Current occupational status: employed Cognitive needs: No Hearing needs: No Vision needs: No Female Reproductive History Menstrual Age of Menarche: 12 Date of last menstrual period: 02/11/24 Questionnaire PHQ-9 Over the last 2 weeks, how often have you been bothered by any of the following problems? 1. Little interest or pleasure in doing things: not at all 2. Feeling down, depressed, or hopeless: not at all 3. Trouble falling or staying asleep, or sleeping too much: not at all 4. Feeling tired or having little energy: not at all 5. Poor appetite or overeating: not at all 6. Feeling bad about yourself - or that you are a failure or have let yourself or your family down: not at all 7. Trouble concentrating on things, such as reading the newspaper or watching television: not at all 8. Moving or speaking so slowly that other people could have noticed. Or the opposite - being so fidgety or restless that you have been moving around a lot more than usual: not at all 9. Thoughts that you would be better off or of hurting yourself in some way: not at all Total score: 0 Depression Screening Interpretation: Negative Depression Screening Done: Yes 03816 - PHQ-9 Billing: Yes Source: Developed by Drs. Porfirio Mortensen, Rolanda Smith, Bandar Rand and colleagues, with an educational jacqui from [employer]. Thrive Questionnaire Date Thrive assessed: 02/23/24 I am a: Patient What is your living situation today?: I have a steady place to live Within the past 12 months, did the food you bought not last and you didn't have the money to get more?: Never true Within the past 12 months, did you worry whether your food would run out before you got money to buy more?: Never true Do you have trouble paying for medicines?: No Do you have trouble getting transportation to medical appointments?: No Do you have trouble paying your heating and electricity bill?: No Do you have trouble taking care of your child, family member or friend?: No Do you have trouble with day-to-day activities such as bathing, preparing meals, shopping, managing finances, etc.?: No Are you currently unemployed and looking for a job?: No Are you interested in more education?: No Please select the resources that you would like help with: None Currently or been in a relationship where the following occur: no concerns reported THRIVE Score: 0 AUDIT C Alcohol Use Questionnaire (AUDIT-C) 1. How often do you have a drink containing alcohol?: Never 3. How often do you have six or more drinks on one occasion?: Never Total Score: 0 Score Reviewed/Action Taken: Yes ASAD-7 AMB Questionnaire ASAD-7 Date ASAD - 7 assessed: 02/23/24 Feeling nervous, anxious, or on edge: 0 = Not at all Not being able to stop or control worryin = Not at all Worrying too much about different things: 0 = Not at all Trouble relaxin = Not at all Being so restless that it is hard to sit still: 0 = Not at all Becoming easily annoyed or irritable: 0 = Not at all Feeling afraid as if something awful might happen: 0 = Not at all Total ASAD-7 score (0-4 normal; 5-9 mild; 10-14 moderate; 15-21 severe): 0 Source: Developed by Drs. Porfirio Mortensen, Rolanda Smith, Bandar Rand and colleagues, with an educational jacqui from [employer]. ASAD-7 Assessment Billing ASAD-7 Assessment Tool: ASAD-7 Assessment 46500 Review of Systems Const Denies chills, Denies fatigue, Denies fever(s), Denies headache(s) and Denies malaise Eyes Denies blurry vision, Denies change in vision, Denies irritation and Denies itchy eyes ENT Denies dysphagia, Denies dizziness, Denies otalgia, Denies headache(s), Denies nasal congestion, Reports nasal discharge (due to allergies), Denies neck pain, Denies odynophagia, Denies sinus pain and Denies sore throat Card Denies chest pain, Denies rapid heart rate, Denies irregular heart rhythm, Denies palpitations and Denies dyspnea Resp Denies chest congestion, Denies cough, Denies dyspnea and Denies wheezing GI Denies abdominal pain, Denies bloating, Denies constipation, Denies dysphagia, Denies heartburn, Denies diarrhea, Denies nausea, Denies odynophagia and Denies vomiting Denies abnormal vaginal bleeding, Denies hematuria, Denies urinary frequency, Denies dysuria, Denies urinary incontinence, Denies urinary urgency, Reports vaginal discharge (mild, on and off) and Denies vaginal pruritus Musc Denies back pain, Denies arthralgias, Denies joint swelling, Denies muscle weakness and Denies neck pain Skin/Breast Denies breast pain, Denies breast mass, Denies change in pigmentation, Denies lesions, Denies rash and Denies unusual bruising Neuro Denies dizziness, Denies headache(s) and Denies paresthesias Psych Denies anxiety and Denies depression Endo Denies fatigue and Denies palpitations Win/Lymph Denies easy bruising Aller/Immun Denies itchy eyes, Reports seasonal rhinorrhea and Denies wheezing Physical exam (Primary Care) Vital Signs: Last Vital Signs Pulse 92 02/23/24 09:57 BP 100/66 02/23/24 09:57 Pulse Ox 97 02/23/24 09:57 Oxygen Delivery Method Room Air 02/23/24 09:57 BMI result Body Mass Index 26.8 Tobacco/Smoking Status: Tobacco use Status Tobacco use date assessed 02/23/24 02/23/24 10:06 Patient Tobacco Use Status Never used Tobacco 02/23/24 09:57 e-Cigarette/Vaping Use Never Used 02/23/24 09:57 PHQ-9: PHQ-9 Score PHQ-9: Total score 0 02/23/24 10:06 Depression Screening Interpretation: Negative Thrive Assessment: Date of Thrive Assessment Date Thrive assessed 02/23/24 02/23/24 10:06 Currently or been in a relationship where the following occur: no concerns reported Const General: no acute distress, alert and awake Orientation/consciousness: patient oriented x3 HENMT Head: Yes normocephalic and Yes atraumatic Ears: external ears normal, TM's normal bilaterally and EAC's normal General nose exam: Nasal discharge present clear Face and sinus: Yes normal facial exam and Yes sinuses nontender Teeth and gingiva: dentition normal Throat: Yes posterior oropharynx normal and Yes tonsils normal (no TP congestion ) Eyes Eyelids: Yes eyelids normal Conjunctivae: conjunctivae normal Pupils: Equal, round and reactive pupils present EOM: EOMs intact bilaterally Neck Neck: Yes no lymphadenopathy and Yes supple Thyroid: Thyroid normal Resp Auscultation: clear to auscultation bilaterally, no rales and no wheezes Cardio Rate: regular rate Rhythm: regular rhythm Heart sounds: no murmurs GI Palpation (GI): Soft to palpation, nontender and No hepatosplenomegaly present Auscultation: normal bowel sounds General: Yes no CVA tenderness Back/Spine/Pelvis Back: no CVA tenderness Thoracic/Lumbar Spine: thoracic and lumbar spine normal to inspection Skin Lesions: no lesions Rashes: no rashes Neuro General: patient oriented x3, moves all extremities, no focal motor deficits and CN's II-XI intact bilaterally Cranial nerves: Yes Equal, round and reactive pupils present Cognition (Neuro): normal cognition Gait exam (Neuro): Normal gait present Extrem General: Yes no clubbing, cyanosis or edema Assessment and Plan Assessment & Plan (1) Annual physical exam: Code(s): Z00.00 - Encounter for general adult medical examination without abnormal findings Plan: Check labs (2) Pure hypercholesterolemia: Code(s): E78.00 - Pure hypercholesterolemia, unspecified Plan: Reinforced low cholesterol diet Patient is advised that her cholesterol numbers were elevated on her labs done last year (total cholesterol was at 217 mg/dl and LDL cholesterol was at 159 mg/dl) Will recheck her fasting lipids for follow up (3) Environmental and seasonal allergies: Code(s): J30.89 - Other allergic rhinitis Plan: Continue Cetirizine 10 mg QD PRN - has been advised by crossing supervisor previously that she can take up to 20 mg of this QD PRN when her allergies flare up significantly Has been recommended immunotherapy in the past but patient does not wish to start at this time (4) Vaginal discharge: Code(s): N89.8 - Other specified noninflammatory disorders of vagina Plan: Relates (+) on and off vaginal discharge but she is otherwise asymptomatic Discussed that on and off vaginal discharge can be a possible side effect of her control but may also be due to other reasons, including group B strep as well as bacterial vaginosis, which can sometimes present without any significant symptoms other than an odorous vaginal discharge Have advised her to follow up with gynecology for this if her vaginal discharge persists or get worse (5) Overweight (BMI 25.0-29.9): Code(s): E66.3 - Overweight Plan: Reinforced diet/exercise as tolerated/lose weight - patient works out and lifts weights regularly so some of her weight may be due to her increased muscle mass and her BMI in this case is likely inaccurately skewed by her increased muscle mass Plan To return in 1 year for her next annual physical examination Follow up PRN for any acute issues that may arise before her next annual PE Orders: Orders Comprehensive [place]. Panel Fast Today E78.00 - Pure hypercholesterolemia, unspecified, Z00.00 - Encounter for general adult medical examination without abnormal findings TSH reflex Free T4 Today E78.00 - Pure hypercholesterolemia, unspecified, Z00.00 - Encounter for general adult medical examination without abnormal findings UA CC w/rflx Micro + Cult Today R30.0 - Dysuria, Z00.00 - Encounter for general adult medical examination without abnormal findings Complete Blood Count Auto Diff Today D64.9 - Anemia, unspecified, Z00.00 - Encounter for general adult medical examination without abnormal findings Lipid Panel Today E78.00 - Pure hypercholesterolemia, unspecified, Z00.00 - Encounter for general adult medical examination without abnormal findings Vitamin D 25-OH Total Today E55.9 - Vitamin D deficiency, unspecified, Z00.00 - Encounter for general adult medical examination without abnormal findings Medications: Refilled epinephrine (EpiPen 2-Dario) for 2 doses 0.3 mg (0.3 mL) IM Q10M PRN 2 ea 0RF anaphylaxis Coding Level of Care Code Est Pt Prev Care 18-39y(42413) Diagnoses Annual physical exam Z00.00 Pure hypercholesterolemia E78.00 Environmental and seasonal allergies J30.89 Vaginal discharge N89.8 Overweight (BMI 25.0-29.9) E66.3 Additional Codes ASAD-7 Assessment Billing - ASAD-7 Assessment Tool: ASAD-7 Assessment 09884 ([id number])
== END 2024-02-23 10:51 | disposition home or self-care (01) ==
PROVIDERS: PCP Internal Medicine; Visit Provider Internal Medicine
DX: Z00.00 Encounter for general adult medical examination without abnormal findings (principal); E78.00 Pure hypercholesterolemia, unspecified; J30.89 Other allergic rhinitis; N89.8 Other specified noninflammatory disorders of vagina; E66.3 Overweight
CPT/HCPCS: 99395

== ENCOUNTER 2024-02-26 14:16 | Outpatient (AMB) | payer OTHER, SELFPAY ==
[2024-02-26 14:18] VITALS: BP 104/62; PULSE 87; TEMP 36.8; O2SAT 99; BMI 27.1
--- NOTE | 2024-02-26 14:18 | AM.OFFWIN_ITS ---
Intake Vital Signs 02/26/24 14:18 Height 5 ft 8 in Weight 178 lb 8 oz BMI 27.1 BP 104/62 Blood Pressure Location Lt brachial Position Sitting Pulse 87 Pulse Source Pulse Oximeter Temp 98.2 F Temp Source Oral Pulse Oximetry (%) 99 Oxygen Delivery Method Room Air Intake Visit Reasons: EP strep throat? (lobby) Intake Note: Pt presents to the office today for c/o sore throat x1 day. Patient Tobacco Use Status: Never used Tobacco Allergies No Known Allergies Allergy (Verified 02/26/24 14:21) HPI HPI Comments History of Present Illness Details 33 y/o female patient who presents to [facility] in clinic with c/o Sore- throat since yesterday night. [facility] Medical History (Updated 02/23/24 @ 11:04 by Brennan Parker MD) Pure hypercholesterolemia Allergy to animal dander Environmental and seasonal allergies Overweight (BMI 25.0-29.9) Surgical History (Updated 02/23/24 @ 10:58 by Brennan Parker MD) History of hysteroscopy (~01/16/24) Hx of dilation and curettage Family History Mother No problems noted. Father No problems noted. Social History Housing: Apartment Alcohol intake: former Patient Tobacco Use Status: Never used Tobacco e-Cigarette/Vaping Use: Never Used Second Hand Smoke Exposure: No service: No Current occupational status: employed Cognitive needs: No Hearing needs: No Vision needs: No Female Reproductive History Menstrual Age of Menarche: 12 Review of Systems Const All systems reviewed & are unremarkable except as noted in HPI and below Physical Exam Vital Signs: Last Vital Signs Temp 98.2 F 02/26/24 14:18 Pulse 87 02/26/24 14:18 BP 104/62 02/26/24 14:18 Pulse Ox 99 02/26/24 14:18 Oxygen Delivery Method Room Air 02/26/24 14:18 BMI result Body Mass Index 27.1 Const General: comfortable and no acute distress Orientation/consciousness: patient oriented x3 HEENT Head: Yes normocephalic Ears: external ears normal and TM abnormal bulging bilateral and with fluid behind the TM bilateral; not dull, not with effusion, not erythematous, not perforated and not retracted General nose exam: No nasal discharge present and Abnormal mucous membranes and turbinates present boggy and erythematous Mouth: moist mucous membranes Throat: Yes posterior oropharynx normal Resp Effort & Inspection: normal respiratory effort and able to speak in complete sentences Auscultation: clear to auscultation bilaterally, no crackles, no rales, no rhonchi and no wheezes Cardio Rate: regular rate Rhythm: regular rhythm Neuro General: patient oriented x3 Results AMB Rapid Strep AMB Rapid Strep Negative Last Edit by Judy Pozo CMA on 02/26/24 14:32 Results Reviewed Results Reviewed: Laboratory Last Values Strep Scn Rapid Clinic Negative 02/26/24 14:24 Assessment & Plan Assessment & Plan (1) Acute pharyngitis: Code(s): J02.9 - Acute pharyngitis, unspecified Qualifiers: Pharyngitis/tonsillitis etiology: unspecified etiology Qualified Code(s): J02.9 - Acute pharyngitis, unspecified Plan: - OTC sore-throat remedies -Take medications as prescribed - Warm fluids with honey Orders: Orders AMB Rapid Strep Screen Today Z13.9 - Encounter for screening, unspecified Medications: New amoxicillin 500 mg PO BID 14 caps 0RF 7 days J02.9 - Acute pharyngitis, unspecified prednisone 50 mg PO DAILY 3 tabs 0RF 3 days J02.9 - Acute pharyngitis, unspecified Coding Level of Care Code Est Pt Level 3 (94842) Diagnoses Acute pharyngitis, unspecified etiology J02.9 Pharyngitis/tonsillitis etiology: unspecified etiology Time Spent (min) 15
--- NOTE | 2024-02-26 14:19 | AM.OFFWIN_ITS ---
Intake Vital Signs 02/26/24 14:18 Height 5 ft 8 in Weight 178 lb 8 oz BMI 27.1 BP 104/62 Blood Pressure Location Lt brachial Position Sitting Pulse 87 Pulse Source Pulse Oximeter Temp 98.2 F Temp Source Oral Pulse Oximetry (%) 99 Oxygen Delivery Method Room Air Intake Visit Reasons: EP strep throat? (lobby) Intake Note: pt is here today for strep throat started Patient Tobacco Use Status: Never used Tobacco Allergies No Known Allergies Allergy (Verified 02/26/24 14:21) HPI HPI Comments History of Present Illness Details 33 y/o female patient who presents to [facility] in clinic with c/o Sore- throat since last night. [facility] Medical History (Updated 02/23/24 @ 11:04 by Brennan Parker MD) Pure hypercholesterolemia Allergy to animal dander Environmental and seasonal allergies Overweight (BMI 25.0-29.9) Surgical History (Updated 02/23/24 @ 10:58 by Brennan Parker MD) History of hysteroscopy (~01/16/24) Hx of dilation and curettage Family History Mother No problems noted. Father No problems noted. Social History Housing: Apartment Alcohol intake: former Patient Tobacco Use Status: Never used Tobacco e-Cigarette/Vaping Use: Never Used Second Hand Smoke Exposure: No service: No Current occupational status: employed Cognitive needs: No Hearing needs: No Vision needs: No Female Reproductive History Menstrual Age of Menarche: 12 Physical Exam Vital Signs: Last Vital Signs Temp 98.2 F 02/26/24 14:18 Pulse 87 02/26/24 14:18 BP 104/62 02/26/24 14:18 Pulse Ox 99 02/26/24 14:18 Oxygen Delivery Method Room Air 02/26/24 14:18 BMI result Body Mass Index 27.1 Assessment & Plan Assessment & Plan (1) Acute pharyngitis: Code(s): J02.9 - Acute pharyngitis, unspecified Qualifiers: Pharyngitis/tonsillitis etiology: unspecified etiology Qualified Code(s): J02.9 - Acute pharyngitis, unspecified Orders: Orders AMB Rapid Strep Screen Today Z13.9 - Encounter for screening, unspecified Coding Diagnoses Acute pharyngitis, unspecified etiology J02.9 Pharyngitis/tonsillitis etiology: unspecified etiology
== END 2024-02-26 14:41 | disposition home or self-care (01) ==
PROVIDERS: PCP Internal Medicine; Visit Provider Nurse Practitioner Family
DX: J02.9 Acute pharyngitis, unspecified (principal)
CPT/HCPCS: 87880; 99213

== ENCOUNTER 2024-05-25 13:50 | Outpatient (AMB) | payer OTHER, SELFPAY ==
[2024-05-25 14:38] VITALS: BP 100/60; BMI 27.7
--- NOTE | 2024-05-25 14:38 | MHC.OFFVIS ---
Vital Signs 05/25/24 14:38 Height 5 ft 8 in Weight 182 lb BMI 27.7 BP 100/60 Intake Visit Reasons: ? infection Chief Nurse Executive Services: Chief Nurse Executive Present Information Interpreted: clinical only Furnace Door Tender: Furnace Door Tender Present Allergies No Known Allergies Allergy (Verified 05/25/24 14:38) Is last menstrual period known: Yes Last menstrual period: 05/05/24 HPI HPI ? infection: Details: pt is her because she thinks she has a yeast infection. she started w curdy white discharge yesterday, and has vaginal irritation today. no recent abx, and no worries re stds. prefers pills for rx. has been hangin out in back yard and pool in bathing suit w her daughter. wearing stretch spandex shorts today. [facility] Medical History Pure hypercholesterolemia Allergy to animal dander Environmental and seasonal allergies Overweight (BMI 25.0-29.9) Surgical History History of hysteroscopy (~01/16/24) Hx of dilation and curettage Family History Mother No problems noted. Father No problems noted. Social History Housing: Apartment Alcohol intake: former Patient Tobacco Use Status: Never used Tobacco e-Cigarette/Vaping Use: Never Used Second Hand Smoke Exposure: No service: No Current occupational status: employed Cognitive needs: No Hearing needs: No Vision needs: No Female Reproductive History Menstrual Age of Menarche: 12 Duration of menses: 3-5 days Date of last menstrual period: 05/05/24 control method: pills Total pregnancies: 1 Full term: 1 History of abnormal pap smear: No (previous pap ,2020,neg) Physical Exam Vital Signs: Last Vital Signs BP 100/60 05/25/24 14:38 BMI result Body Mass Index 27.7 External Female Exam: normal external appearance and normal appearance of the urethra Speculum Exam - Vagina: normal appearance of the vagina and normal vaginal discharge (A little bit curdy white. Consistent with beginning yeast infection) Speculum Exam - Cervix: normal appearance of the cervix and Cervical os closed Assessment & Plan Assessment & Plan (1) Vaginal discharge: Comment: Started yesterday believes it has a yeast infection she likes to jump right on it will treat with Diflucan, teaching done Code(s): N89.8 - Other specified noninflammatory disorders of vagina Category: Medical (2) Yeast infection of the vagina: Code(s): B37.31 - Acute candidiasis of vulva and vagina Category: Medical (3) Cervical cancer screening: Comment: normal pap 2019, ho hx abnormals. next pap due 2022 Code(s): Z12.4 - Encounter for screening for malignant neoplasm of cervix Category: Medical Plan Teaching done about yeast and what conditions encouraged it to grow she is aware that she has been out pool in her backyard with her daughter and she just through on her Spandex shorts to come here and go check on her grandmother. She prefers the pills treatment though did not remember about how to take them I reminded her that she can take 1 pill now and in 3 days if she is still has symptoms she can repeat the dose. I am also giving her refills given that the start of the summer in this could recur. I encouraged her to change out of her eating suit or Spandex when she can and switch to cotton when she no longer needs Spandex to allow air to the vulva. Prescription sent with 2 refills. After patient left more complete chart review done. Her last Pap was done in 2019 it has not available in this system but may be available in previous system. She was due for Pap in 2022 needs annual and Pap. Orders: Orders Bacterial Vaginosis Panel Today N89.8 - Other specified noninflammatory disorders of vagina Medications: New fluconazole may repeat second dose 72 hrs after first dose if symptoms persist 150 mg PO Q3D 2 doses 2 tabs 2RF Coding Level of Care Code Est Pt Level 3 (94021) Diagnoses Vaginal discharge N89.8 Yeast infection of the vagina B37.31 Cervical cancer screening Z12.4
== END 2024-05-25 15:11 | disposition home or self-care (01) ==
LOC: HO.HWSM 13:50
PROVIDERS: PCP Internal Medicine; Visit Provider Advanced Practice Midwife
DX: N89.8 Other specified noninflammatory disorders of vagina (principal); B37.31 Acute candidiasis of vulva and vagina; Z12.4 Encounter for screening for malignant neoplasm of cervix
CPT/HCPCS: 99213

== ENCOUNTER 2024-05-25 13:50 | Outpatient (REF) | payer OTHER, SELFPAY ==
[2024-05-26 09:15] LABS: Bacterial Vaginosis PCR NEGATIVE (Negative); Candida Group PCR DETECTED (Not Detect); Candida glab krusei PCR NOT DETECTED (Not Detect); Trichomonas vaginalis PCR NOT DETECTED (Not Detect)
== END 2024-05-25 13:51 | disposition home or self-care (01) ==
LOC: HO.LAB 13:50
PROVIDERS: PCP Internal Medicine; Visit Provider Advanced Practice Midwife
DX: N89.8 Other specified noninflammatory disorders of vagina (principal); B37.31 Acute candidiasis of vulva and vagina; Z12.4 Encounter for screening for malignant neoplasm of cervix
CPT/HCPCS: 0352U; 99212

== ENCOUNTER 2024-06-23 09:56 | Outpatient (REF) | payer OTHER, SELFPAY ==
[2024-06-25 02:39] LABS: CT PCR NOT DETECTED (Not Detect.); NG PCR NOT DETECTED (Not Detect.)
[2024-06-25 11:00] LABS: Bacterial Vaginosis PCR NEGATIVE (Negative); Candida Group PCR DETECTED (Not Detect); Candida glab krusei PCR NOT DETECTED (Not Detect); Trichomonas vaginalis PCR NOT DETECTED (Not Detect)
[2024-06-28 11:43] LABS: HPV mRNA E6/E7 Not Detected (Not Detected)
== END 2024-06-23 09:57 | disposition home or self-care (01) ==
LOC: HO.LAB 09:56
PROVIDERS: PCP Internal Medicine; Visit Provider Advanced Practice Midwife
DX: Z01.419 Encounter for gynecological examination (general) (routine) without abnormal findings (principal); Z11.51 Encounter for screening for human papillomavirus (HPV); Z20.2 Contact with and (suspected) exposure to infections with a predominantly sexual mode of transmission; N89.8 Other specified noninflammatory disorders of vagina
CPT/HCPCS: 0352U; 36415; 87491; 87591; 87624; 88175; 99395

== ENCOUNTER 2024-06-23 09:56 | Outpatient (AMB) | payer OTHER, SELFPAY ==
[2024-06-23 10:17] VITALS: BP 112/68; BMI 28.0
--- NOTE | 2024-06-23 10:17 | A.OFFVIS_ITS ---
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 Present Allergies No Known Allergies Allergy (Verified 06/23/24 10:18) Medication List - Last Reconciled 06/23/24 by Denisse Monsalve, LEE cetirizine 10 mg PO DAILY PRN 90 days epinephrine (EpiPen 2-Dario) 0.3 mg (0.3 mL) IM Q10M PRN fluconazole 150 mg PO Q3D 2 doses norethindrone-e.estradiol-iron 1.5 mg-30 mcg ()/75 mg (7) ( FE 1.5/30 (28)) tabs PO prednisone 50 mg PO DAILY 3 days Is last menstrual period known: Yes Last menstrual period: 06/02/24 Do you need a note to return to daycare/school/sports/work: No HPI 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 She is due for Pap smear. Review the system and previous visits done [facility] after [facility]. She had evaluation for the bleeding that showed a polyp on pathology central tissue was noted so she was followed further studies including quant hCG which was less than 2. She has been on control pills and they are working for her and she has a very regular period at this time and wants to stay on them. 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 The yeast infection she had is all gone and the [employer] worked. [facility] Medical History Pure hypercholesterolemia Allergy to animal dander Environmental and seasonal allergies Overweight (BMI 25.0-29.9) Surgical History History of hysteroscopy (~01/16/24) Hx of dilation and curettage Family History Mother No problems noted. Father No problems noted. Social History (Reviewed 06/23/24 @ 10:19 by Christa Burger CMASheridan Housing: Apartment Alcohol intake: former Patient Tobacco Use Status: Never used Tobacco e-Cigarette/Vaping Use: Never Used Second Hand Smoke Exposure: No service: No Current occupational status: employed Cognitive needs: No Hearing needs: No Vision needs: No Female Reproductive History Menstrual Age of Menarche: 12 Duration of menses: 3-5 days Date of last menstrual period: 06/02/24 control method: pills Total pregnancies: 1 Full term: 1 History of abnormal pap smear: No (previous pap ,2020,neg.) Physical Exam Vital Signs: Last Vital Signs BP 112/68 06/23/24 10:17 BMI result Body Mass Index 28.0 Const General: healthy appearing, comfortable, no acute distress, well developed and alert Nutritional Appearance: average body habitus Orientation/consciousness: patient oriented x3 Limitations: no limitations HEENT Head: Yes normocephalic Neck Neck: Yes normal visual inspection Chest Chest palpation & inspection: normal inspection of the chest Breast/axilla inspection: normal inspection of the breasts and normal inspection of the axillae Breast/axilla palpation: normal palpation of the breasts and normal palpation of the axillae Resp Effort & Inspection: normal respiratory effort GI Inspection: Yes normal to inspection, No Abdominal wall edema and No distended Palpation (GI): Soft to palpation and nontender General: Yes bladder normal to palpation External Female Exam: normal external appearance and normal appearance of the urethra Speculum Exam - Vagina: normal appearance of the vagina, normal palpation and normal vaginal discharge Speculum Exam - Cervix: normal appearance of the cervix, normal palpation and nontender Bimanual exam- vagina & uterus: normal bimanual exam, normal palpation, uterine size normal, bladder normal to palpation, consistency normal, normal palpation, uterine mobility normal, uterine shape normal, No Cervical tenderness present, non-tender and no cervical motion tenderness Bimanual Exam- Adnexa, other: normal adnexae, no masses, normal and No adnexal tenderness Neuro General: patient oriented x3 Results Reviewed Results Reviewed: Previous labs and pathology and hCGs the on as per follow-up post bleeding evaluation. Assessment & Plan Assessment & Plan (1) Abnormal ultrasound of endometrium: Comment: History of medical with possible retained products of conception in 08/09 Code(s): R93.5 - Abnormal findings on diagnostic imaging of other abdominal regions, including retroperitoneum Category: Medical (2) Family planning advice: Code(s): Z30.09 - Encounter for other general counseling and advice on contraception Category: Medical (3) Screen for sexually transmitted diseases: Code(s): Z11.3 - Encounter for screening for infections with a predominantly sexual mode of transmission Category: Medical (4) Cervical cancer screening: Comment: normal pap 2019, ho hx abnormals. next pap due 2022 Code(s): Z12.4 - Encounter for screening for malignant neoplasm of cervix Category: Medical (5) Well woman exam with routine gynecological exam: Code(s): Z01.419 - Encounter for gynecological examination (general) (routine) without abnormal findings Category: Medical (6) Counseling for control, oral contraceptives: Code(s): Z30.09 - Encounter for other general counseling and advice on contraception Category: Medical Plan -----Discussed in this visit the following: healthy balanced diet, regular and consistent exercise, getting recommended health screens, doing the best she can for her particular health concerns, kegel exercises, pap smear screening and followup recommendations, mammography screening and SBE, normal changes in cycles in her life stage--- . Reviewed her Pap history reviewed her history of the TAB followed by the prolonged bleeding and be full evaluation she had with Dr. Chacon including the endometrial biopsy and follow-up D and C which revealed the placental tissue on pathology and his follow-up which was complete and she is very happy about having things finally resolved and she is feeling better being on the control pills now they are working well for her she is getting her period very regularly when she expects it. She is on the placebo pills right now and is expecting it any day now I am sending a refill for another year on the control pills reviewed her Pap history and that if this Pap is negative with negative HPV her next Pap will be in 5 years but we will still see her every year for annual exams and managing of her control. Also reviewed that her primary care provider had ordered lots of fasting labs this past February which she says she will go get done soon. Medications: Changed From norethindrone-e.estradiol-iron 1.5 mg-30 mcg ()/75 mg (7) ( FE 1.5/30 (28)) PO To norethindrone-e.estradiol-iron 1.5 mg-30 mcg (21)/75 mg (7) ( FE 1.5/30 (28)) 1 tab PO .QD 84 tabs 4RF Coding Level of Care Code Est Pt Prev Care 18-39y(99267) Diagnoses Abnormal ultrasound of endometrium R93.5 Family planning advice Z30.09 Screen for sexually transmitted diseases Z11.3 Cervical cancer screening Z12.4 Well woman exam with routine gynecological exam Z01.419 Counseling for control, oral contraceptives Z30.09
== END 2024-06-23 11:50 | disposition home or self-care (01) ==
LOC: HO.HWSM 09:56
PROVIDERS: PCP Internal Medicine; Visit Provider Advanced Practice Midwife
DX: Z01.419 Encounter for gynecological examination (general) (routine) without abnormal findings (principal)
CPT/HCPCS: 99395

== ENCOUNTER → 2024-12-24 12:52 | Outpatient (BNVA) | DX: R21 Rash and other nonspecific skin eruption (principal) | CPT/HCPCS: 99212 ==

== ENCOUNTER → 2024-12-24 12:52 | Outpatient (AMB) | END | disposition home or self-care (01) ==

== ENCOUNTER 2025-01-11 10:51 | Outpatient (REF) | payer OTHER, SELFPAY ==
--- OUTSIDE RECORDS SUMMARY | 2025-01-11 14:34 | XMS_ITS | Clinical Summary ---
Author Organization [facility] ity Address [address] [place] [address] Care Team Providers Care Billposting Supervisor Name Role Phone Unavailable Primary Care Provider [...]
[2025-01-12 11:48] LABS: CT PCR NOT DETECTED (Not Detect.); NG PCR NOT DETECTED (Not Detect.)
[2025-01-12 13:49] LABS: Bacterial Vaginosis PCR NEGATIVE (Negative); Candida Group PCR DETECTED (Not Detect); Candida glab krusei PCR NOT DETECTED (Not Detect); Trichomonas vaginalis PCR NOT DETECTED (Not Detect)
== END 2025-01-11 10:52 | disposition home or self-care (01) ==
LOC: HO.LAB 10:51
PROVIDERS: PCP Internal Medicine; Visit Provider Advanced Practice Midwife
DX: Z30.09 Encounter for other general counseling and advice on contraception (principal); B37.31 Acute candidiasis of vulva and vagina; N89.8 Other specified noninflammatory disorders of vagina; Z20.2 Contact with and (suspected) exposure to infections with a predominantly sexual mode of transmission
CPT/HCPCS: 81515; 87491; 87591; 99212; 99459

== ENCOUNTER 2025-01-11 10:51 | Outpatient (AMB) | payer OTHER, SELFPAY ==
[2025-01-11 10:54] VITALS: BP 100/60; BMI 27.7
--- NOTE | 2025-01-11 10:54 | A.OFFVIS_ITS ---
Vital Signs 01/11/25 10:54 Height 5 ft 8 in Weight 182 lb BMI 27.7 BP 100/60 Intake Visit Reasons: STD check Manager Cardiology Required: No Manager Cardiology Services: Manager Cardiology Present Information Interpreted: clinical only Hand Assembler For Puller Over: Hand Assembler For Puller Over Present Allergies No Known Allergies Allergy (Verified 01/11/25 11:01) Medication List - Last Reconciled 01/11/25 by Denisse Monsalve CNM cetirizine 10 mg PO DAILY PRN 90 days clobetasol 0.05% 1 appl topical BEDTIME 14 days epinephrine (EpiPen 2-Dario) 0.3 mg (0.3 mL) IM Q10M PRN norethindrone-e.estradiol-iron 1.5 mg-30 mcg ()/75 mg (7) ( FE 1.5/30 ()) 1 tab PO .QD Is last menstrual period known: Yes Last menstrual period: 01/06/25 HPI HPI STD check: Details: Here because she thinks yeast infection but she wants to be sure that it is not anything else she has had vaginal itching and burning for about 2-3 weeks in the past she has used various aggh-jri-[id number] treatments including miconazole 1 and that burned her terribly.. She has used fluconazole in the past and that worked but she only took the 1 dose and then some what soon after she started itching again. She was not sure if the fact that she had intercourse fairly soon after treating it made a difference.. Her 3-year-old nursed for 20 months and mario she was done nursing she felt like she needed to reclaim her body and everything so she went back to the gym and started working out and now it is really good for her mental health and she goes and works out 5 days a week and loves it. Consequently she does live in [place] and [employer] a lot. LMP was December 19 due for her next menses next week. [facility] Medical History Pure hypercholesterolemia Allergy to animal dander Environmental and seasonal allergies Overweight (BMI 25.0-29.9) Surgical History History of hysteroscopy (~01/16/24) Hx of dilation and curettage Family History Mother No problems noted. Father No problems noted. Social History Housing: Apartment Alcohol intake: former Patient Tobacco Use Status: Never used Tobacco e-Cigarette/Vaping Use: Never Used Second Hand Smoke Exposure: No service: No Current occupational status: employed Cognitive needs: No Hearing needs: No Vision needs: No Female Reproductive History Menstrual Age of Menarche: 12 Duration of menses: 3-5 days Date of last menstrual period: 01/06/25 control method: pills Total pregnancies: 1 Full term: 1 Date of last pap smear: 06/23/24 (negative) Physical Exam Vital Signs: Last Vital Signs BP 100/60 01/11/25 10:54 BMI result Body Mass Index 27.7 Other: External vulva is reddened. Vagina slightly reddened normal vaginal mucus. Iesha ting for STIs and yeast and BV done. External Female Exam: normal external appearance and normal appearance of the urethra Speculum Exam - Vagina: normal appearance of the vagina and normal vaginal discharge Speculum Exam - Cervix: normal appearance of the cervix and Cervical os closed Assessment & Plan Assessment & Plan (1) Yeast infection of the vagina: Comment: Teaching done Rx for fluconazole with refills given also review miconazole 7 for OTC Rx if caught early prevention with air exposure optimal, Lycra and Spandex challenging, expose to air as soon as possible after work outs... Code(s): B37.31 - Acute candidiasis of vulva and vagina Category: Medical (2) Counseling for control, oral contraceptives: Code(s): Z30.09 - Encounter for other general counseling and advice on contraception Category: Medical Plan Full teaching about yeast done discussed all the circumstances that are contributing for her including her daily workouts and spending a lot of time in lycra & Spandex. It sounds like she assessed her situation quite well but has not been able to quite get ahead of the situation/ yeast so we will send prescription for fluconazole with refills use 1 tablet repeat in 3 days if so symptomatic. Can use [id number] miconazole 7 whichever recommend over the 3 day and 1 day Rx s. discussed the role of intercourse which is essentially scratching her vagina and inflaming things. She is doing well on her control pills and has a enough refills for June. I recommend against panty liners and for cotton. Medications: New fluconazole may repeat second dose 72 hrs after first dose if symptoms persist 150 mg PO Q3D 2 doses 2 tabs 3RF Coding Level of Care Code Est Pt Level 3 (56334) Diagnoses Yeast infection of the vagina B37.31 Counseling for control, oral contraceptives Z30.09
--- OUTSIDE RECORDS SUMMARY | 2025-01-11 13:05 | XMS_ITS | Clinical Summary ---
Author Organization [facility] ity Address [address] [place] [address] Care Team Providers Care Migration Specialist Name Role Phone Unavailable Primary Care Provider Unavailabl e Social History Tobacco Use Types Packs/Day Years Used Date Smoking Tobacco: Never Assessed Comments Unknown Sex and Gender Information Value Date Recorded Sex Assigned at Not on file Legal Sex Female 3:10 PM EST Gender Identity Not on file Sexual Orientation Not on file Plan of Treatment Health Maintenance Due Date Last Done Comments DTaP,Tdap,and Td Vaccines (1 - Tdap) 2011 Hepatitis B Vaccines (1 of 3 - 19+ 3-dose series) 2011 Cervical Cancer Screening: P ap Smear 2013 COVID-19 Vaccine ( - 2023-2 5 season) 2024 Influenza Vaccine (#1) 2024 HIB Vaccines Aged Out No longer eligi ble based on patient's age to complete this topic HPV Vaccines Aged Out No longer eligi ble based on patient's age to complete this topic Hepatitis A Vaccines Aged Out No long er eligible based on patient's age to complete this topic IPV Vaccines Aged Out No longer eligi ble based on patient's age to complete this topic MMR Vaccines Aged Out No longer eligi ble based on patient's age to complete this topic Meningococcal ACWY Vaccine Aged Out N o longer eligible based on patient's age to complete this topic Meningococcal B Vacine Aged Out No lo nger eligible based on patient's age to complete this topic Pneumococcal Vaccine: Pediat rics (0 to 5 Years) and At-Risk Patients (6 to 64 Years) Aged Out No longer eligible b ased on patient's age to complete this topic RSV Immunization Patients Un lisa 20 months Aged Out No longer eligible b ased on patient's age to complete this topic Varicella Vaccines Aged Out No longer eligible based on patient's age to complete this topic
== END 2025-01-11 11:58 | disposition home or self-care (01) ==
PROVIDERS: PCP Internal Medicine; Visit Provider Advanced Practice Midwife
DX: B37.31 Acute candidiasis of vulva and vagina (principal); Z30.09 Encounter for other general counseling and advice on contraception
CPT/HCPCS: 99213

== ENCOUNTER 2025-02-24 09:50 | Outpatient (AMB) | payer OTHER, SELFPAY ==
[2025-02-24 10:14] VITALS: BP 106/62; PULSE 95; O2SAT 99; BMI 26.6
--- NOTE | 2025-02-24 10:14 | A.OFFPC_ITS ---
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 Accompanied by: Self / Same As Patient Allergies No Known Allergies Allergy (Verified 02/24/25 10:44) Medication List - Last Reconciled 02/24/25 by Brennan Parker MD cetirizine 10 mg PO DAILY PRN 90 days clobetasol 0.05% 1 appl topical BEDTIME 14 days epinephrine (EpiPen 2-Dario) 0.3 mg (0.3 mL) IM Q10M PRN norethindrone-e.estradiol-iron 1.5 mg-30 mcg (21)/75 mg (7) ( ()) 1 tab PO .QD Tobacco use date assessed: 02/24/25 Dental Screening Dental Screen Date: 02/24/25 Did you have a dental visit in the last 12 months?: Yes Did you have a dental problem in the last 6 months where you did not have access to dental care?: No Was dental information given to patient?: Patient has dentist HPI Annual Exam HPI Details Patient comes in today for her annual physical examination States that she feels okay She denies any headaches or dizziness Denies any chest pains, no SOB No nausea/vomiting, no abdominal pain No change in bowel habits noted Denies any acute urinary symptoms States that she's had a small cyst near the tip of her nose for years now and would like to see someone about potentially having this removed - states that the cyst does not hurt or itch Relates that she also has an itchy rash over the back of her neck that keeps recurring - states that she went to the walk-in clinic for this a couple of months ago and was prescribed something that helped clear it up temporarily She is also current requesting for a referral for counseling/therapy for anxiety - states that she feels like she has a lot of stuff bottled up within her but she has no one to talk to about them She is up-to-date with her yearly gynecology exam and pap smear - has her next gynecology appointment scheduled on 06/27/2025 [facility] Medical History Pure hypercholesterolemia Allergy to animal dander Environmental and seasonal allergies Overweight (BMI 25.0-29.9) Surgical History History of hysteroscopy (~01/16/24) Hx of dilation and curettage Family History Mother No problems noted. Father No problems noted. Social History Housing: Apartment Alcohol intake: former Patient Tobacco Use Status: Never used Tobacco e-Cigarette/Vaping Use: Never Used Second Hand Smoke Exposure: No service: No Current occupational status: employed Cognitive needs: No Hearing needs: No Vision needs: No Female Reproductive History Menstrual Age of Menarche: 12 Questionnaire PHQ-9 Over the last 2 weeks, how often have you been bothered by any of the following problems? 1. Little interest or pleasure in doing things: not at all 2. Feeling down, depressed, or hopeless: not at all 3. Trouble falling or staying asleep, or sleeping too much: not at all 4. Feeling tired or having little energy: not at all 5. Poor appetite or overeating: not at all 6. Feeling bad about yourself - or that you are a failure or have let yourself or your family down: not at all 7. Trouble concentrating on things, such as reading the newspaper or watching television: not at all 8. Moving or speaking so slowly that other people could have noticed. Or the opposite - being so fidgety or restless that you have been moving around a lot more than usual: not at all 9. Thoughts that you would be better off or of hurting yourself in some way: not at all Total score: 0 Depression Screening Interpretation: Negative Depression Screening Done: Yes 16965 - PHQ-9 Billing: Yes Source: Developed by Drs. Porfirio Mortensen, Rolanda Smith, Bandar Rand and colleagues, with an educational jacqui from adjust. Thrive Questionnaire Date Thrive assessed: 02/24/25 I am a: Patient What is your living situation today?: I have a steady place to live Within the past 12 months, did the food you bought not last and you didn't have the money to get more?: Often true Within the past 12 months, did you worry whether your food would run out before you got money to buy more?: Often true Do you have trouble paying for medicines?: No Do you have trouble getting transportation to medical appointments?: Yes Do you have trouble paying your heating and electricity bill?: No Do you have trouble taking care of your child, family member or friend?: No Do you have trouble with day-to-day activities such as bathing, preparing meals, shopping, managing finances, etc.?: No Are you currently unemployed and looking for a job?: No Are you interested in more education?: No Please select the resources that you would like help with: None Currently or been in a relationship where the following occur: No concerns reported THRIVE Score: 3 AUDIT C Alcohol Use Questionnaire (AUDIT-C) 1. How often do you have a drink containing alcohol?: Never 3. How often do you have six or more drinks on one occasion?: Never Total Score: 0 Score Reviewed/Action Taken: Yes ASAD-7 AMB Questionnaire ASAD-7 Date ASAD - 7 assessed: 02/24/25 Feeling nervous, anxious, or on edge: 0 = Not at all Not being able to stop or control worryin = Not at all Worrying too much about different things: 0 = Not at all Trouble relaxin = Not at all Being so restless that it is hard to sit still: 0 = Not at all Becoming easily annoyed or irritable: 0 = Not at all Feeling afraid as if something awful might happen: 0 = Not at all Total ASAD-7 score (0-4 normal; 5-9 mild; 10-14 moderate; 15-21 severe): 0 Source: Developed by Drs. Porfirio Mortensen, Rolanda Smith, Bandar Rand and colleagues, with an educational jacqui from adjust. Review of Systems Const Denies chills, Denies fatigue, Denies fever(s), Denies headache(s) and Denies malaise Eyes Denies blurry vision, Denies change in vision, Denies irritation and Denies itchy eyes ENT Denies dysphagia, Denies dizziness, Denies otalgia, Denies headache(s), Denies nasal congestion, Denies neck pain, Denies odynophagia, Denies sinus pain and De nies sore throat Card Denies chest pain, Denies rapid heart rate, Denies irregular heart rhythm, Denies palpitations and Denies dyspnea Resp Denies chest congestion, Denies cough, Denies dyspnea and Denies wheezing GI Denies abdominal pain, Denies bloating, Denies constipation, Denies dysphagia, Denies heartburn, Denies diarrhea, Denies nausea, Denies odynophagia and Denies vomiting Denies hematuria, Denies urinary frequency, Denies dysuria, Denies urinary incontinence and Denies urinary urgency Musc Denies back pain, Denies arthralgias, Denies joint swelling, Denies muscle weakness and Denies neck pain Skin/Breast Details: (+) small cyst on the left side of the nose; also (+) recurrent itchy rash on the back of the neck Denies breast pain, Denies breast mass, Denies change in pigmentation and Denies unusual bruising Neuro Denies dizziness, Denies headache(s) and Denies paresthesias Psych Denies anxiety and Denies depression Endo Denies fatigue and Denies palpitations Win/Lymph Denies easy bruising Aller/Immun Denies itchy eyes and Denies wheezing Physical exam (Primary Care) Vital Signs: Last Vital Signs Pulse 95 02/24/25 10:14 BP 106/62 02/24/25 10:14 Pulse Ox 99 02/24/25 10:14 Oxygen Delivery Method Room Air 02/24/25 10:14 BMI result Body Mass Index 26.6 Tobacco/Smoking Status: Tobacco use Status Tobacco use date assessed 02/24/25 02/24/25 10:15 Patient Tobacco Use Status Never used Tobacco 02/24/25 10:15 e-Cigarette/Vaping Use Never Used 02/24/25 10:15 PHQ-9: PHQ-9 Score PHQ-9: Total score 0 02/25/25 05:38 Depression Screening Interpretation: Negative Thrive Assessment: Date of Thrive Assessment Date Thrive assessed 02/24/25 02/24/25 10:15 Currently or been in a relationship where the following occur: No concerns reported Const General: no acute distress, alert and awake Orientation/consciousness: patient oriented x3 HENMT Other: (+) small, non-tender, firm cyst on the left side of the nose on the outer nasal area Head: Yes normocephalic and Yes atraumatic Ears: external ears normal, TM's normal bilaterally and EAC's normal General nose exam: No nasal discharge present Face and sinus: Yes normal facial exam and Yes sinuses nontender Teeth and gingiva: dentition normal Throat: Yes posterior oropharynx normal and Yes tonsils normal (no TP congestion) Eyes Eyelids: Yes eyelids normal Conjunctivae: conjunctivae normal Pupils: Equal, round and reactive pupils present EOM: EOMs intact bilaterally Neck Neck: Yes no lymphadenopathy and Yes supple Thyroid: Thyroid normal Resp Auscultation: clear to auscultation bilaterally, no rales and no wheezes Cardio Rate: regular rate Rhythm: regular rhythm Heart sounds: no murmurs GI Palpation (GI): Soft to palpation, nontender and No hepatosplenomegaly present Auscultation: normal bowel sounds General: Yes no CVA tenderness Back/Spine/Pelvis Back: no CVA tenderness Thoracic/Lumbar Spine: thoracic and lumbar spine normal to inspection Skin Other: (+) mildly scaling erythematous rash on the back of the neck at the edge of the hairline Lesions: no lesions Neuro General: patient oriented x3, moves all extremities, no focal motor deficits and CN's II-XI intact bilaterally Cranial nerves: Yes Equal, round and reactive pupils present Cognition (Neuro): normal cognition Gait exam (Neuro): Normal gait present Extrem General: Yes no clubbing, cyanosis or edema Coding Level of Care Code Est Pt Prev Care 18-39y(77809) Diagnoses Annual physical exam Z00.00 Pure hypercholesterolemia E78.00 Dermoid cyst of nose D36.7 Erythematous rash R21 Environmental and seasonal allergies J30.89 Anxiety F41.9 Overweight (BMI 25.0-29.9) E66.3 Additional Codes PHQ-9 - 73053 - PHQ-9 Billing: Yes ([id number]) Assessment & Plan Assessment & Plan (1) Annual physical exam: Code(s): Z00.00 - Encounter for general adult medical examination without abnormal fin dings Category: Medical Plan: Check labs She is currently up-to-date when her yearly gynecology exam and pap smear (2) Pure hypercholesterolemia: Code(s): E78.00 - Pure hypercholesterolemia, unspecified Category: Medical Plan: Reinforced low cholesterol diet She did not get her labs done last year Have reminded patient that her cholesterol numbers were elevated on her labs when they were last done a couple of years ago - total cholesterol was at 217 mg/dl and LDL cholesterol was at 159 mg/dl Will recheck her fasting lipids JORDI for follow up (3) Dermoid cyst of nose: Code(s): D36.7 - Benign neoplasm of other specified sites Category: Medical Plan: Will refer her to dermatology for further evaluation and consideration for excision of the cyst on the left side of her nose externally (4) Erythematous rash: Code(s): R21 - Rash and other nonspecific skin eruption Category: Medical Plan: Continue Clobetasol 0.05% topical scalp solution apply to rash BID PRN - Rx refilled (5) Environmental and seasonal allergies: Code(s): J30.89 - Other allergic rhinitis Category: Medical Plan: Continue Cetirizine 10 mg QD PRN - she has been advised by her peoplesoft fscm developer previously that she can take up to 20 mg of this QD as needed when her allergies flare up significantly She has also been recommended for immunotherapy in the past but patient does not wish to start yet (6) Anxiety: Code(s): F41.9 - Anxiety disorder, unspecified Category: Medical Plan: Per request, will refer patient to [facility] for counseling/therapy (7) Overweight (BMI 25.0-29.9): Code(s): E66.3 - Overweight Category: Medical Plan: Reinforced diet/exercise as tolerated/lose weight - patient works out and lifts weights regularly so some of her weight may be due to her increased muscle mass and her BMI in this case is likely inaccurately skewed by her muscle mass Plan To return in 1 year for her next annual physical examination Orders: Orders Complete Blood Count Auto Diff 02/24/25 D64.9 - Anemia, unspecified, Z00.00 - Encounter for general adult medical examination without abnormal findings TSH reflex Free T4 02/24/25 E78.00 - Pure hypercholesterolemia, unspecified, Z00.00 - Encounter for general adult medical examination without abnormal findings UA CC w/rflx Micro + Cult 02/24/25 R30.0 - Dysuria, Z00.00 - Encounter for general adult medical examination without abnormal findings Vitamin D 25-OH Total 02/24/25 E55.9 - Vitamin D deficiency, unspecified, Z00.00 - Encounter for general adult medical examination without abnormal findings Comprehensive [place]. Panel Fast 02/24/25 E78.00 - Pure hypercholesterolemia, unspecified, Z00.00 - Encounter for general adult medical examination without abnormal findings Lipid Panel 02/24/25 E78.00 - Pure hypercholesterolemia, unspecified, Z00.00 - Encounter for general adult medical examination without abnormal findings Referrals Psychiatry Referral F41.9 - Anxiety disorder, unspecified Dermatology Referral D36.7 - Benign neoplasm of other specified sites Medications: Changed From clobetasol 0.05% 1 appl topical BEDTIME 14 days 25 mL 0RF Scalp rash To clobetasol 0.05% apply to rash for 10 to 14 days until rash clears up; can then use again as needed if rash recurs 1 appl topical BID PRN 50 mL 1RF itchy rash on scalp and n marbin
--- OUTSIDE RECORDS SUMMARY | 2025-02-24 11:13 | XMS_ITS | Clinical Summary ---
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
== END 2025-02-24 11:00 | disposition home or self-care (01) ==
LOC: HO.HMCH 09:51
PROVIDERS: PCP Internal Medicine; Visit Provider Internal Medicine
DX: Z00.00 Encounter for general adult medical examination without abnormal findings (principal); E78.00 Pure hypercholesterolemia, unspecified; D36.7 Benign neoplasm of other specified sites; R21 Rash and other nonspecific skin eruption; J30.89 Other allergic rhinitis; F41.9 Anxiety disorder, unspecified; E66.3 Overweight

== ENCOUNTER → 2025-02-24 09:50 | Outpatient (BNVA) | payer OTHER, SELFPAY | PROVIDERS: PCP Internal Medicine; Visit Provider Internal Medicine | DX: Z00.00 Encounter for general adult medical examination without abnormal findings (principal); E78.00 Pure hypercholesterolemia, unspecified; D36.7 Benign neoplasm of other specified sites; R21 Rash and other nonspecific skin eruption; J30.89 Other allergic rhinitis; F41.9 Anxiety disorder, unspecified; E66.3 Overweight; Z68.26 Body mass index [BMI] 26.0-26.9, adult | CPT/HCPCS: 96127; 99395 ==

== ENCOUNTER 2025-04-06 11:36 | Outpatient (AMB) | payer OTHER, SELFPAY ==
--- NOTE | 2025-04-06 11:38 | MHC.OFFVIS ---
Vital Signs 04/06/25 11:40 BP 106/60 Intake Visit Reasons: ? infection Intake Note: pt c/o watery white discharge and itching, used diflucan last week with some relief Scientific Informatics Analyst: Scientific Informatics Analyst Present (Leslie) Allergies No Known Allergies Allergy (Verified 04/06/25 11:40) Is last menstrual period known: Yes Last menstrual period: 03/26/25 HPI Comments Details: Patient is here today with concerns that she has vaginal itching with watery discharge over the last week. She denies any pelvic pain or urinary symptoms. No recent antibiotics. Prior history of yeast infections. Uses a Bedit at home for cleaning which is comfortable with the cooler water. She denies any finger clean hair douching. Current OCP user. [facility] Medical History Vulvovaginal candidiasis Pure hypercholesterolemia Allergy to animal dander Environmental and seasonal allergies Overweight (BMI 25.0-29.9) Surgical History History of hysteroscopy (~01/16/24) Hx of dilation and curettage Family History Mother No problems noted. Father No problems noted. Social History Housing: Apartment Alcohol intake: former Patient Tobacco Use Status: Never used Tobacco e-Cigarette/Vaping Use: Never Used Second Hand Smoke Exposure: No service: No Current occupational status: employed Cognitive needs: No Hearing needs: No Vision needs: No Female Reproductive History Menstrual Age of Menarche: 12 Date of last menstrual period: 03/26/25 Review of Systems Const All systems reviewed & are unremarkable except as noted in HPI and below Physical Exam Vital Signs: Last Vital Signs BP 106/60 04/06/25 11:40 Const General: cooperative, healthy appearing and no acute distress Orientation/consciousness: patient oriented x3 GI Inspection: Yes normal to inspection Palpation (GI): Soft to palpation and Other GI palpation findings present (Nontender) Rectal Exam - Female: visual inspection normal General: Yes bladder normal to palpation External Female Exam: normal appearance of the urethra, erythema (With maceration) and external swelling Speculum Exam - Vagina: normal appearance of the vagina, normal palpation and abnormal vaginal discharge (Heavy thick yellow clumpy) Speculum Exam - Cervix: normal appearance of the cervix and normal palpation Bimanual exam- vagina & uterus: normal bimanual exam, normal palpation, uterine size normal, bladder normal to palpation, normal palpation, uterine shape normal and non-tender Bimanual Exam- Adnexa, other: normal adnexae Neuro General: patient oriented x3 Assessment & Plan Assessment & Plan (1) Vulvovaginal candidiasis: Code(s): B37.31 - Acute candidiasis of vulva and vagina Category: Medical Plan Instructions: Clean with warm water, no soaps, scented products. Use a cool cloth or Bedit to the area several times a day if swollen and/or uncomfortable. Wear loose, cotton underclothes, avoid tight outer clothing. Air when possible. No coitus until well healed. Complete all medications as prescribed. Await final pending results for any changes in the plan of care. Call the office if there is no improvement in 72 hrs., or if worsening symptoms. Use of medications reviewed. Discuss the role of probiotics for Women's vaginal health, vaginal toña and microbiome. Boric acid information provided. Long-term consideration for control change if indicated. Follow up p.r.n.. The patient expressed understanding and agreement with the plan of care. All of her questions and concerns were addressed to the best of my ability. Declines need for STD blood work to be done. Advised to sign up for the patient portal. Annual exam scheduled June 2025. This note is constructed using voice recognition software. While every effort has been made to ensure accuracy, wood carver hand errors may have been included. . Orders: Orders Bacterial Vaginosis Panel Today N89.8 - Other specified noninflammatory disorders of vagina CT NG by PCR Today N89.8 - Other specified noninflammatory disorders of vagina Medications: New fluconazole 150 mg PO ONCE 1 day 1 tab 0RF personal clotrimazole-betamethasone 1-0.05 % 1 appl topical BID 7 days PRN 45 grams 0RF itching Coding Level of Care Code Est Pt Level 3 (87158) Diagnoses Vulvovaginal candidiasis B37.31
[2025-04-06 11:40] VITALS: BP 106/60
--- OUTSIDE RECORDS SUMMARY | 2025-04-06 12:56 | XMS_ITS | Clinical Summary ---
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
== END 2025-04-06 12:05 | disposition home or self-care (01) ==
LOC: HO.HWS 11:37
PROVIDERS: PCP Internal Medicine; Visit Provider Advanced Practice Midwife
DX: B37.31 Acute candidiasis of vulva and vagina (principal)
CPT/HCPCS: 99213

== ENCOUNTER 2025-04-06 11:36 | Outpatient (REF) | payer OTHER, SELFPAY ==
[2025-04-06 14:46] LABS: Bacterial Vaginosis PCR NEGATIVE (Negative); Candida Group PCR DETECTED (Not Detect); Candida glab krusei PCR NOT DETECTED (Not Detect); Trichomonas vaginalis PCR NOT DETECTED (Not Detect)
[2025-04-06 15:16] LABS: CT PCR NOT DETECTED (Not Detect.); NG PCR NOT DETECTED (Not Detect.)
== END 2025-04-06 11:37 | disposition home or self-care (01) ==
LOC: HO.LAB 11:36
PROVIDERS: PCP Internal Medicine; Visit Provider Advanced Practice Midwife
DX: N89.8 Other specified noninflammatory disorders of vagina (principal); B37.31 Acute candidiasis of vulva and vagina
CPT/HCPCS: 81515; 87491; 87591; 99212

== ENCOUNTER 2025-04-06 11:50 | Outpatient (REF) | payer OTHER, SELFPAY | END 2025-04-06 11:51 | disposition home or self-care (01) | LOC: HO.LNP 11:50 | PROVIDERS: Visit Provider Advanced Practice Midwife | DX: Z13.89 Encounter for screening for other disorder (principal) ==

== ENCOUNTER 2025-10-18 10:09 | Outpatient (AMB) | payer OTHER, SELFPAY ==
--- NOTE | 2025-10-18 10:12 | A.OFFVIS_ITS ---
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 She stopped her pills and plans to restart. UPT is negative. She reports increased stress, has a counselor. She denies any contraindications to control such as: migraines with aura, history of DVT or pulmonary emboli, high blood pressure, liver disease, thrombolic disorders, Lupus, +PARISH, breast cancer, or smoking. She denies vaginal itching or irritation. STI screening offered; she accepts, declines bloodwork. She tries to eat healthy and stays active with exercise. Last pap smear 2023, negative. 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 Father No problems noted. Social History Housing: Apartment Alcohol intake: former Patient Tobacco Use Status: Never used Tobacco e-Cigarette/Vaping Use: Never Used Second Hand Smoke Exposure: No service: No Current occupational status: employed Cognitive needs: No Hearing needs: No Vision needs: No Female Reproductive History Menstrual Age of Menarche: 12 Duration of menses: 3-5 days Date of last menstrual period: 09/14/25 control method: pills Total pregnancies: 2 Full term: 1 Ab induced: 1 Date of last pap smear: 07/05/24 Review of Systems Const All systems reviewed & are unremarkable except as noted in HPI and below Reports as per HPI Eyes Reports no additional complaints ENT Reports no additional complaints Card Reports no additional complaints Resp Reports no additional complaints GI Reports as per HPI and Reports no additional complaints Reports as per HPI Musc Reports no additional complaints Skin/Breast Reports as per HPI Neuro Reports no additional complaints Psych Reports no additional complaints Endo Reports no additional complaints Win/Lymph Reports no additional complaints Aller/Immun Reports no additional complaints Physical Exam Vital Signs: Last Vital Signs BP 108/62 10/18/25 10:13 BMI result Body Mass Index 27.7 Const General: cooperative, healthy appearing, no acute distress, well developed and alert Orientation/consciousness: patient oriented x3 HEENT Head: Yes normal to inspection Eyes General: appearance normal, both eyes and all related structures Neck Neck: Yes normal visual inspection Thyroid: Thyroid normal Chest Chest palpation & inspection: normal inspection of the chest and other (no puckering, dimpling, peau de orange, retraction, discharge, masses) Breast/axilla inspection: normal inspection of the breasts Breast/axilla palpation: normal palpation of the breasts Resp Effort & Inspection: normal respiratory effort GI Inspection: Yes normal to inspection Palpation (GI): Soft to palpation Rectal Exam - Female: deferred General: Yes bladder normal to palpation External Female Exam: normal external appearance and normal appearance of the urethra Speculum Exam - Vagina: normal appearance of the vagina, normal palpation and normal vaginal discharge Speculum Exam - Cervix: normal appearance of the cervix and normal palpation Bimanual exam- vagina & uterus: normal bimanual exam, normal palpation, uterine size normal, bladder normal to palpation, normal palpation and non-tender Bimanual Exam- Adnexa, other: no masses Skin General skin exam: no rashes or lesions noted Rashes: no rashes Neuro General: patient oriented x3 Cognition (Neuro): normal cognition Extrem General: Yes normal to inspection Psych Attitude: cooperative Thought process: Normal thought process present Results AMB Test Urine AMB Test Urine Negative Last Edit by Judy Pozo CMA on 10/18/25 10:28 Results Reviewed Results Reviewed: Laboratory Last Values Tst Clinic Negative 10/18/25 10:27 Assessment & Plan Assessment & Plan (1) Well woman exam with routine gynecological exam: Code(s): Z01.419 - Encounter for gynecological examination (general) (routine) without abnormal findings Category: Medical Plan: Discussed: Current recommendations for pap smears per ASCCP guidelines. Breast awareness and periodic breast exams. Maintain a healthy lifestyle including a well balanced diet and routine exercise. control hormone use warnings: go to ER if and loss of vision, blindness, severe headache, chest pain or difficulty breathing, severe abdominal pain, or any pain or swelling in an extremity. Advised to complete primary care's labs which will include thyroid assessment, reminded her they are fasting. Patient verbalizes understanding and agrees to the plan of care. She was given opportunity to ask questions and all questions were answered to the best of my ability. 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 This note is constructed using voice recognition software. While every effort has been made to ensure accuracy, cell feed department supervisor errors may have been included. (2) Advised about oral contraception: Code(s): Z30. - Encounter for other general counseling and advice on contraception Plan Discuss effects of control on the endometrial lining, sometimes thin so little decreases with time and may not have any bleeding at all noted. Offered to switch control pill brand or dosing, patient declines and prefers to continue with OCP brand. The patient expressed understanding and agreement with the plan of care. All of her questions and concerns were addressed to the best of my ability. Advised to follow up if there were any other concerns and to do a home test if any risk for in the future. Orders: Orders Bacterial Vaginosis Panel Today Z01.419 - Encounter for gynecological examination (general) (routine) without abnormal findings AMB HCG Urine Test Today Z32.02 - Encounter for test, result negative CT NG by PCR Vag/Cerv Today Z01.419 - Encounter for gynecological examination (general) (routine) without abnormal findings Medications: Refilled norethindrone-e.estradiol-iron 1.5 mg-30 mcg (21)/75 mg (7) ( FE 1.5/30 (28)) 1 tab PO .QD 84 tabs 4RF 84 days Coding Level of Care Code Est Pt Prev Care 18-39y(95586) Diagnoses Well woman exam with routine gynecological exam Z01.419 Advised about oral contraception Z30.
[2025-10-18 10:13] VITALS: BP 108/62; BMI 27.7
--- OUTSIDE RECORDS SUMMARY | 2025-10-18 11:34 | XMS_ITS | Clinical Summary ---
Author Organization [facility] it Address [address] [place] [address] Care Team Providers Care Public Health Advisor Name Role Phone Unavailable Primary Care Provider [...] Cervical Cancer Screening: P ap Smear 2013 HPV Vaccines (1 - 3-dose SCD M series) 2019 Depression Screening 11/17/2024 COVID-19 Vaccine (1 - 2024-2 6 season) 2025 Influenza Vaccine (#1) 2025 RSV Immunization Adult Patie nts (1 - 1-dose 75+ series) 2067 HIB Vaccines Aged Out No longer eligi [...] 5 Years) and At-Risk Patients (6 to 49 Years) Aged Out No longer eligible b ased on patient's age to complete this topic RSV Immunization Patients Un lisa 20 months Aged Out No longer eligible b ased on patient's age to complete this topic Varicella Vaccines Aged Out No longer eligible based on patient's age to complete this topic
== END 2025-10-18 11:03 | disposition home or self-care (01) ==
LOC: HO.HWS 10:09
PROVIDERS: PCP Internal Medicine; Visit Provider Advanced Practice Midwife
DX: Z01.419 Encounter for gynecological examination (general) (routine) without abnormal findings (principal); Z30.09 Encounter for other general counseling and advice on contraception; Z32.02 Encounter for pregnancy test, result negative
CPT/HCPCS: 99395; 99459

== ENCOUNTER 2025-10-18 10:09 | Outpatient (REF) | payer OTHER, SELFPAY ==
[2025-10-18 16:18] LABS: CT PCR NOT DETECTED (Not Detect.); NG PCR NOT DETECTED (Not Detect.)
[2025-10-18 16:23] LABS: Bacterial Vaginosis PCR POSITIVE (Negative); Candida Group PCR NOT DETECTED (Not Detect); Candida glab krusei PCR NOT DETECTED (Not Detect); Trichomonas vaginalis PCR NOT DETECTED (Not Detect)
== END 2025-10-18 10:10 | disposition home or self-care (01) ==
LOC: HO.LNP 10:09
PROVIDERS: PCP Internal Medicine; Visit Provider Advanced Practice Midwife
DX: Z01.419 Encounter for gynecological examination (general) (routine) without abnormal findings (principal); Z32.02 Encounter for pregnancy test, result negative; Z20.2 Contact with and (suspected) exposure to infections with a predominantly sexual mode of transmission
CPT/HCPCS: 81515; 87491; 87591

== ENCOUNTER 2025-10-19 09:05 | Outpatient (REF) | payer OTHER, SELFPAY ==
[2025-10-19 09:15] LABS: MANUAL DIFF FLAG NO
--- OUTSIDE RECORDS SUMMARY | 2025-10-19 09:41 | XMS_ITS | Clinical Summary ---
Author Organization [facility] it Address [address] [place] [address] Care Team Providers Care Database Consultant Name Role Phone Unavailable Primary Care Provider [...]
[2025-10-19 09:46] LABS: Hematocrit 42.1 % (37.0-47.0); Hemoglobin 13.6 g/dl (12.0-16.0); Imm Gran Abs Auto 0.03 X10*3/uL (0.00-0.03); Imm Gran Pct Auto 0.6 % (0.0-0.4); Lymphocytes Absolute Auto 2.4 X10*3/uL (1.2-4.9); Mean Corpuscular HGB Conc 32.3 g/dl (31.0-35.0); Mean Corpuscular Hemoglobin 31.8 pg (27.0-33.0); Mean Corpuscular Volume 98.4 fL (80.0-98.0); NRBC Abs Auto 0.000 X10*3/uL (0.0-0.012); NRBC Pct Auto 0.0 /100WBC (0.0-0.2); Platelet Count 299 X10*3/uL (160-400); Red Blood Count 4.28 X10*6/uL (4.20-5.50); White Blood Count 5.4 X10*3/uL (4.8-10.8)
[2025-10-19 09:51] LABS: Appearance Urine Clear; Glucose Urine UA Negative (Negative); PH 5.5 (5.0-9.0); Specific Gravity - Urine 1.025 (1.005-1.025); UMIC TRIGGER UACC YES
[2025-10-19 10:03] LABS: UACC Culture Trigger YES
[2025-10-19 10:56] LABS: Alanine Aminotransferase 25 U/L (0-31); Albumin Level 4.2 g/dL (3.5-5.0); Alkaline Phosphatase 51 U/L (39-117); Anion Gap 9 (12-20); Aspartate Amino Transferase 21 U/L (5-31); Blood Urea Nitrogen 19 mg/dL (9-16); Calcium 9.1 mg/dL (8.4-10.2); Carbon Dioxide 26 mmol/L (22-29); Chloride 108 mmol/L (96-108); Cholesterol 224 mg/dL (<200); Estimated Glomerular Filt Rate > 60; HDL Cholesterol 59 mg/dL (>40); Potassium 4.0 mmol/L (3.3-5.1); Sodium 139 mmol/L (135-145); Total Protein 6.8 g/dL (6.5-8.0); Triglycerides 64 mg/dL (<150)
== END 2025-10-19 09:06 | disposition home or self-care (01) ==
LOC: HO.LAB 09:05
PROVIDERS: PCP Internal Medicine; Visit Provider Internal Medicine
DX: Z00.00 Encounter for general adult medical examination without abnormal findings (principal); D64.9 Anemia, unspecified; E78.00 Pure hypercholesterolemia, unspecified; E55.9 Vitamin D deficiency, unspecified
CPT/HCPCS: 36415; 80053; 80061; 81001; 82306; 84443; 85025; 87086; 87147